=== PATIENT | male | born 1960 | race Caucasian/White ===

== ENCOUNTER 2017-11-22 11:03 | Inpatient (IN) | payer MEDICAID ==
--- NOTE | 2017-11-22 11:44 | RAD ---
PROCEDURE: CHEST RADIOGRAPH, 1 VIEW HISTORY: Shortness of breath COMPARISON: None available. FINDINGS: LUNGS: The lungs are clear. PLEURA: No pneumothorax or pleural fluid seen. CARDIOVASCULAR: Normal. OSSEOUS STRUCTURES: No significant abnormalities. VISUALIZED UPPER ABDOMEN: Normal. OTHER FINDINGS: None. IMPRESSION: No active pulmonary disease.
[2017-11-22 11:49] LABS: BASO % 0.6 % (0.0-2.0); EOS # 0.3 K/uL (0.0-0.7); EOS % 3.7 % (0.0-4.0); HEMOGLOBIN 14.3 g/dL (12.0-18.0); LYMPH # 1.5 K/uL (1.0-4.3); LYMPH % 21.9 % (20.0-40.0); MEAN CELL VOLUME 88.5 fL (80.0-94.0); MEAN CORPUSCULAR HGB CONC 33.9 g/dL (33.0-37.0); MEAN PLATELET VOLUME 7.8 fL (7.2-11.7); NEUT # 4.2 K/uL (1.8-7.0); NEUT % 59.8 % (50.0-75.0); RBC 4.76 Mil/uL (4.40-5.90); RED CELL DISTRIBUTION WIDTH 13.7 % (11.5-14.5)
[2017-11-22 13:26] LABS: ALB/GLOB RATIO 1.2 (1.0-2.1); ALBUMIN 4.2 g/dL (3.5-5.0); ALT/SGPT 47 U/L (21-72); AST/SGOT 112 U/L (17-59); BLOOD UREA NITROGEN 13 mg/dL (9-20); CALCIUM 9.3 mg/dl (8.6-10.4); GFR AFRICAN-AMERICAN > 60; GFR NON-AFRICAN AMERICAN > 60
[2017-11-22 13:44] LABS: B-TYPE NATRIURETIC PEPTIDE 1190 pg/mL (0-900)
--- NOTE | 2017-11-22 14:10 | C.PDOC ---
History Of Present Illness 57-year-old male, presents to the emergency department with complaints of chest pain x3 days, that is described as discomfort associated with shortness of breath. Patient referred to ED for evaluation. Denies nausea/vomiting/diarrhea, chest pain or shortness of breath. Time Seen by Provider: 11/22/17 11:27 Chief Complaint (Nursing): Shortness Of Breath History Per: Patient History/Exam Limitations: no limitations Onset/Duration Of Symptoms: Days Current Symptoms Are (Timing): Still Present Past Medical History Reviewed: Historical Data, Nursing Documentation, Vital Signs Vital Signs: Last Vital Signs Temp 99.3 F 11/23/17 07:37 Pulse 68 11/23/17 08:27 Resp 17 11/23/17 08:27 BP 104/65 11/23/17 08:27 Pulse Ox 96 11/23/17 09:31 - Medical History PMH: Hypercholesterolemia Family History: States: No Known Family Hx - Social History Hx Alcohol Use: No Hx Substance Use: No Review Of Systems Constitutional: Negative for: Fever, Chills Cardiovascular: Positive for: Chest Pain Respiratory: Positive for: Shortness of Breath Gastrointestinal: Negative for: Vomiting Musculoskeletal: Negative for: Neck Pain, Back Pain Skin: Negative for: Rash Neurological: Negative for: Weakness, Numbness, Headache, Dizziness Physical Exam - Physical Exam Appears: Non-toxic, No Acute Distress Skin: Normal Color, Warm, Dry, No Rash Head: Atraumatic, Normacephalic Eye(s): bilateral: PERRL Nose: Normal Oral Mucosa: Moist Lips: Normal Appearing Neck: Normal ROM Chest: Symmetrical Cardiovascular: Rhythm Regular Respiratory: Normal Breath Sounds Gastrointestinal/Abdominal: Normal Exam, Bowel Sounds, Soft Extremity: Normal ROM, No Deformity, No Swelling Neurological/Psych: Oriented x3, Normal Speech ED Course And Treatment - Laboratory Results Result Diagrams: 11/23/17 05:50 11/23/17 05:57 ECG Rhythm: Sinus Rhythm Interpretation Of ECbpm. Normal intervals. Normal axis. ST depressions in 4 , 5, 6. T wave inversions and occsional PVCs in III and AVF. O2 Sat by Pulse Oximetry: 96 (RA) Pulse Ox Interpretation: Normal Critical Care Time - Critical Care Note Total Time (in mins): 45 Documented critical care: time excludes all time spent performing seperately billable procedures. Medical Decision Making Medical Decision Making: Patient will be admitted for NSTEMI Disposition Discussed With Dr.: Aron Cartwright Counseled Patient/Family Regarding: Studies Performed, Diagnosis - Disposition Disposition: HOSPITALIZED Disposition Time: 14:10 Condition: FAIR - Clinical Impression Clinical Impression: NSTEMI (non-ST elevated myocardial infarction) - Scribe Statement The provider has reviewed the documentation as recorded by the Scribe (Faina Louis) All medical record entries made by the Scribe were at my direction and personally dictated by me. I have reviewed the chart and agree that the record accurately reflects my personal performance of the history, physical exam, medical decision making, and the department course for this patient. I have also personally directed, reviewed, and agree with the discharge instructions and disposition.
[2017-11-22] MEDS ORDERED: Morphine 4 MG/ML VIAL IV ONE (14:55)
[2017-11-22] MEDS ORDERED: Nitroglycerin 2% Ointment Foilpak UD TOP ONE (14:56)
[2017-11-22] MEDS ORDERED: Heparin25000 units/250ml 1/2NS 25,000 UNITS/250 ML BAG IV PRN (15:00)
--- NOTE | 2017-11-22 15:16 | CP.PCM.HP ---
<Eze Nevarez - Last Filed: 11/22/17 16:39> History of Present Illness - History of Present Illness History of Present Illness: PGY-1 H&P for Dr. Cartwright CC: chest pain This is a 57 year old male with no significant PMHx who comes in referred by Dr. Hernandez for chest pain. Patient has been experiencing chest pain for the past 3 days. It is left sided and non-radiating. Patient is unable to describe the quality of the pain but states that it is currently 3/10. Pain is constant. Patient states that when it first started, it woke him up from sleep. He drank water and tried to walk in the hopes of improvement. He went to Dr. Fredo Hernandez who referred him to the ED. Patient states that he is also experiencing intermittent shortness of breath with exertion. Both the chest pain and dyspnea are unrelated to positional changes. PMHx: Denies PSHx: Denies Allergies: NKDA Social: Smokes 3 cigarettes daily for many years, unable to remember how many years. Denies alcohol, drug use. Lives alone and works in a [employer]. Family Hx: Father passed at age 83 due to cardiac issues. PMD: Dr. Fredo Hernandez Home meds: Denies Present on Admission - Present on Admission Any Indicators Present on Admission: No Review of Systems - Constitutional Constitutional: absent: Chills, Fever - EENT Eyes: absent: Change in Vision Ears: absent: Decreased Hearing Nose/Mouth/Throat: absent: Nasal Congestion - Cardiovascular Cardiovascular: Chest Pain - Respiratory Respiratory: Cough, Dyspnea on Exertion. absent: Wheezing - Gastrointestinal Gastrointestinal: absent: Abdominal Pain, Nausea, Vomiting - Genitourinary Genitourinary: absent: Dysuria - Musculoskeletal Musculoskeletal: absent: Back Pain - Integumentary Integumentary: absent: Rash - Neurological Neurological: absent: Weakness - Psychiatric Psychiatric: absent: Anxiety - Endocrine Endocrine: absent: Palpitations Past Patient History - Past Social History Smoking Status: Current Some Days Smoker - CARDIAC Hx Hypercholesterolemia: Yes - PSYCHIATRIC Hx Substance Use: No - SURGICAL HISTORY Hx Surgeries: No Meds Allergies/Adverse Reactions: Allergies Allergy/AdvReac Type Severity Reaction Status Date / Time No Known Allergies Allergy Verified 11/22/17 11:22 Physical Exam - Constitutional Appears: No Acute Distress - Head Exam Head Exam: ATRAUMATIC, NORMOCEPHALIC - Eye Exam Eye Exam: EOMI, PERRL - ENT Exam ENT Exam: Mucous Membranes Moist - Respiratory Exam Respiratory Exam: Clear to Auscultation Bilateral, NORMAL BREATHING PATTERN. absent: Rales, Rhonchi, Wheezes - Cardiovascular Exam Cardiovascular Exam: REGULAR RHYTHM, +S1, +S2. absent: JVD - GI/Abdominal Exam GI & Abdominal Exam: Normal Bowel Sounds, Soft. absent: Distended, Tenderness - Extremities Exam Extremities exam: Positive for: pedal pulses present. Negative for: pedal edema - Neurological Exam Neurological exam: Alert, CN II-XII Intact, Oriented x3 - Psychiatric Exam Psychiatric exam: Normal Affect, Normal Mood - Skin Skin Exam: Dry, Warm Results - Vital Signs Recent Vital Signs: Last Vital Signs Temp 98.7 F 11/22/17 11:18 Pulse 78 11/22/17 13:52 Resp 18 11/22/17 13:52 BP 111/77 11/22/17 13:52 Pulse Ox 96 11/22/17 15:03 - Labs Result Diagrams: 11/22/17 11:44 11/22/17 11:44 Labs: Laboratory Results - last 24 hr 11/22/17 11/22/17 11:44 11:44 WBC 7.0 RBC 4.76 Hgb 14.3 Hct 42.1 MCV 88.5 MCH 30.0 MCHC 33.9 RDW 13.7 Plt Count 218 MPV 7.8 Neut % (Auto) 59.8 Lymph % (Auto) 21.9 [place] % (Auto) 14.0 H Eos % (Auto) 3.7 Baso % (Auto) 0.6 Neut # (Auto) 4.2 Lymph # (Auto) 1.5 [place] # (Auto) 1.0 H Eos # (Auto) 0.3 Baso # (Auto) 0.0 Sodium 141 Potassium 4.3 Chloride 103 Carbon Dioxide 20 L Anion Gap 22 H BUN 13 Creatinine 0.9 Est GFR ( Amer) > 60 Est GFR (Non-Af Amer) > 60 Random Glucose 102 Calcium 9.3 Total Bilirubin 0.6 AST 112 H ALT 47 Alkaline Phosphatase 97 Troponin I 4.0400 H* NT-Pro-B Natriuret Pep 1190 H Total Protein 7.8 Albumin 4.2 Globulin 3.6 Albumin/Globulin Ratio 1.2 Assessment & Plan - Assessment and Plan (Free Text) Plan: NSTEMI ST segment depressions seen on lateral leads First Troponin 4.44, repeat 4.60 Cardiology consult, Dr. Jamil, help appreciated BNP elevated Full dose aspirin given in ED STAT Plavix 300 mg and Crestor 40 mg given when he came up to the floors 2 mg of IV Morphine and topical nitroglycerin given for pain on the floors but switched to sublingual per cardiology recommendation GOAL HEART RATE in the 50s for now. Therapeutic Lovenox 75 mg SC Q12H Cardiac Cath tomorrow morning Work up ordered includes UDS, Lipid panel, hemoglobin A1C, Thyroid panel, Echocardiogram Current medications: * Lopressor 25 mg PO Q6H * ASA 325 daily * Plavix 75 daily Disposition: Patient will be transferred to the ICU for further monitoring. Discussed with Dr. Gabbie Nevarez PGY-1 <Aron Cartwright - Last Filed: 11/22/17 18:38> Results - Vital Signs Recent Vital Signs: Last Vital Signs Temp 98.7 F 11/22/17 15:05 Pulse 57 L 11/22/17 16:25 Resp 20 11/22/17 16:25 BP 103/66 11/22/17 16:25 Pulse Ox 96 11/22/17 15:15 - Labs Result Diagrams: 11/22/17 11:44 11/22/17 11:44 Labs: Laboratory Results - last 24 hr 11/22/17 11/22/17 11/22/17 11:44 11:44 15:26 WBC 7.0 RBC 4.76 Hgb 14.3 Hct 42.1 MCV 88.5 MCH 30.0 MCHC 33.9 RDW 13.7 Plt Count 218 MPV 7.8 Neut % (Auto) 59.8 Lymph % (Auto) 21.9 [place] % (Auto) 14.0 H Eos % (Auto) 3.7 Baso % (Auto) 0.6 Neut # (Auto) 4.2 Lymph # (Auto) 1.5 [place] # (Auto) 1.0 H Eos # (Auto) 0.3 Baso # (Auto) 0.0 PT 11.3 INR 1.0 APTT 25 Sodium 141 Potassium 4.3 Chloride 103 Carbon Dioxide 20 L Anion Gap 22 H BUN 13 Creatinine 0.9 Est GFR ( Amer) > 60 Est GFR (Non-Af Amer) > 60 Random Glucose 102 Calcium 9.3 Total Bilirubin 0.6 AST 112 H ALT 47 Alkaline Phosphatase 97 Total Creatine Kinase CK-MB (Mass) Troponin I 4.0400 H* NT-Pro-B Natriuret Pep 1190 H Total Protein 7.8 Albumin 4.2 Globulin 3.6 Albumin/Globulin Ratio 1.2 11/22/17 15:26 WBC RBC Hgb Hct MCV MCH MCHC RDW Plt Count MPV Neut % (Auto) Lymph % (Auto) [place] % (Auto) Eos % (Auto) Baso % (Auto) Neut # (Auto) Lymph # (Auto) [place] # (Auto) Eos # (Auto) Baso # (Auto) PT INR APTT Sodium Potassium Chloride Carbon Dioxide Anion Gap BUN Creatinine Est GFR ( Amer) Est GFR (Non-Af Amer) Random Glucose Calcium Total Bilirubin AST ALT Alkaline Phosphatase Total Creatine Kinase 481 H CK-MB (Mass) 11.7 H Troponin I 4.6800 H* NT-Pro-B Natriuret Pep Total Protein Albumin Globulin Albumin/Globulin Ratio Attending/Attestation - Attestation I have personally seen and examined this patient.: Yes I have fully participated in the care of the patient.: Yes I have reviewed all pertinent clinical information: Yes Notes (Text): 11/22/17 18:28 Medical attending: Patient was seen and examined by me. Agree with the above note by the resident The patient was moved to the despite me asking the ER to keep the patient in the ER until I could come and evaluate the patient. The patient was actively having chest pain when I saw him. He reported he was having chest pain at his PMD's office and when he came to the ER. He was not given nitro SL or topical yet, nor morphine so we tried this. We also started heparin ggt, however cardiology called us back very shortly and changed to lovenox SC BID We ordered Plavix, ASA, statin, betablocker. As mentioned above he already had positive troponins, and also the concerning EKG findings we moved the patient to the ICU. An immediate repeat troponin shows that it is still climbing. Cardiology is planning on cardiac catherization. Echo has been ordered. thank you Aron Cartwright
[2017-11-22] MEDS ORDERED: Metoprolol 1 mg/ml Inj IVP ONE ×2 (15:43)
[2017-11-22] MEDS ORDERED: Enoxaparin 60 mg Syringe SC SCH (15:44)
[2017-11-22 15:48] LABS: PROTHROMBIN TIME 11.3 SECONDS (9.7-12.2)
[2017-11-22 16:20] LABS: TROPONIN I 4.68 ng/mL (0.00-0.120)
[2017-11-22 16:21] LABS: CK-MB 11.7 ng/mL (0.0-3.38)
--- NOTE | 2017-11-22 16:21 | CP.PCM.CON ---
<Kenia Barnard - Last Filed: 11/22/17 16:41> History of Present Illness - History of Present Illness History of Present Illness: ICU Consult Note : Patient is a 57 year old male with no significant PMHx who comes in referred by Dr. Hernandez for chest pain. Patient has been experiencing chest pain for the past 3-4 days. It is left sided and non-radiating. Patient is unable to describe the quality of the pain but states that it is currently 3/10. Pain is constant. Patient states that when it first started, it woke him up from sleep. He drank water and tried to walk in the hopes of improvement. He went to Dr. Fredo Hernandez who referred him to the ED. Patient states that he is also experiencing intermittent shortness of breath with exertion. Both the chest pain and dyspnea are unrelated to positional changes. Denies headaches, dizziness, palpitations, sob, urinary symptoms. ED Course: Aspirin 324mg PO x 1, Plavix 300mg PO x 1 PMD: Dr. Fredo Hernandez Past Medical Hx: Denies Past Surgical Hx: Denies Allergies: NKDA Social: Smokes 3 cigarettes daily for many years, unable to remember how many years. Denies alcohol, drug use. Lives alone and works in a [employer]. Family Hx: Father passed at age 83 due to cardiac issues. Medications: Denies Past Patient History - Past Social History Smoking Status: Current Some Days Smoker - CARDIAC Hx Hypercholesterolemia: Yes - PSYCHIATRIC Hx Substance Use: No - SURGICAL HISTORY Hx Surgeries: No Meds Allergies/Adverse Reactions: Allergies Allergy/AdvReac Type Severity Reaction Status Date / Time No Known Allergies Allergy Verified 11/22/17 11:22 - Medications Medications: Current Medications Aspirin (Aspirin) 325 mg PO DAILY [facility] Clopidogrel Bisulfate (Plavix) 75 mg PO DAILY [facility] Enoxaparin Sodium (Lovenox) 75 mg SC Q12H [facility] Metoprolol Tartrate (Lopressor) 25 mg PO Q6 [facility] Last Admin: 11/22/17 16:17 Dose: 25 mg Nitroglycerin (Nitrostat Sl Tab) 0.4 mg SL Q5M PRN PRN Reason: chest pain Physical Exam - Additional Findings Additional findings: - Constitutional Appears: No Acute Distress - Head Exam Head Exam: ATRAUMATIC, NORMOCEPHALIC - Eye Exam Eye Exam: EOMI, PERRL - ENT Exam ENT Exam: Mucous Membranes Moist - Respiratory Exam Respiratory Exam: Clear to Auscultation Bilateral, NORMAL BREATHING PATTERN. absent: Rales, Rhonchi, Wheezes - Cardiovascular Exam Cardiovascular Exam: REGULAR RHYTHM, +S1, +S2. absent: JVD - GI/Abdominal Exam GI & Abdominal Exam: Normal Bowel Sounds, Soft. absent: Distended, Tenderness - Extremities Exam Extremities exam: Positive for: pedal pulses present. Negative for: pedal edema - Neurological Exam Neurological exam: Alert, CN II-XII Intact, Oriented x3 - Psychiatric Exam Psychiatric exam: Normal Affect, Normal Mood - Skin Skin Exam: Dry, Warm Results - Vital Signs Recent Vital Signs: Last Vital Signs Temp 98.7 F 11/22/17 15:05 Pulse 66 11/22/17 15:05 Resp 20 11/22/17 15:05 BP 101/57 L 11/22/17 16:17 Pulse Ox 96 11/22/17 15:15 - Labs Result Diagrams: 11/22/17 11:44 11/22/17 11:44 Labs: Laboratory Results - last 24 hr 11/22/17 11/22/17 11/22/17 11:44 11:44 15:26 WBC 7.0 RBC 4.76 Hgb 14.3 Hct 42.1 MCV 88.5 MCH 30.0 MCHC 33.9 RDW 13.7 Plt Count 218 MPV 7.8 Neut % (Auto) 59.8 Lymph % (Auto) 21.9 [place] % (Auto) 14.0 H Eos % (Auto) 3.7 Baso % (Auto) 0.6 Neut # (Auto) 4.2 Lymph # (Auto) 1.5 [place] # (Auto) 1.0 H Eos # (Auto) 0.3 Baso # (Auto) 0.0 PT 11.3 INR 1.0 APTT 25 Sodium 141 Potassium 4.3 Chloride 103 Carbon Dioxide 20 L Anion Gap 22 H BUN 13 Creatinine 0.9 Est GFR ( Amer) > 60 Est GFR (Non-Af Amer) > 60 Random Glucose 102 Calcium 9.3 Total Bilirubin 0.6 AST 112 H ALT 47 Alkaline Phosphatase 97 Total Creatine Kinase Troponin I 4.0400 H* NT-Pro-B Natriuret Pep 1190 H Total Protein 7.8 Albumin 4.2 Globulin 3.6 Albumin/Globulin Ratio 1.2 11/22/17 15:26 WBC RBC Hgb Hct MCV MCH MCHC RDW Plt Count MPV Neut % (Auto) Lymph % (Auto) [place] % (Auto) Eos % (Auto) Baso % (Auto) Neut # (Auto) Lymph # (Auto) [place] # (Auto) Eos # (Auto) Baso # (Auto) PT INR APTT Sodium Potassium Chloride Carbon Dioxide Anion Gap BUN Creatinine Est GFR ( Amer) Est GFR (Non-Af Amer) Random Glucose Calcium Total Bilirubin AST ALT Alkaline Phosphatase Total Creatine Kinase 481 H Troponin I NT-Pro-B Natriuret Pep Total Protein Albumin Globulin Albumin/Globulin Ratio Assessment & Plan - Assessment and Plan (Free Text) Assessment: Patient is a 57 year old male with no significant past medical history presented to the ED with chest pain x 3-4 days. Now with NSTEMI. Will admit to ICU for closer monitoring. Neurology: -Patient is AAOx3 -Will transfer to ICU at this time for closer monitoring Cardiology: -Patient denies previous cardiac issues -Patient with NSTEMI, currently chest pain improved -Troponin trending up 4.040 -> 4.680, f/u troponins -BNP 1190 -Lovenox 75mg Q12H -Continue Aspirin 325mg PO daily, Plavix 75mg PO daily -Continue Metoprolol 25mg PO Q6H, Nitroglycein 0.4mg SL prn -Per cardio, goal to keep HR < 60 -Patient for cardiac cath tomorrow -NPO after midnight -F/U echocardiogram, TSH, Free T4, Lipid panel, UDS -Cardiology on consult, Dr Jamil, help appreciated Respiratory: -No acute events at this time -CXR 11/22: no active disease GI : -No acute events at this time Renal: -No acute events at this time GI/DVT ppx: -Pepcid 20mg PO BID -Lovenox 75mg Q12H (hold tomorrow am dose) <Guille Neves - Last Filed: 11/22/17 16:50> Meds - Medications Medications: Current Medications Aspirin (Aspirin) 325 mg PO DAILY [facility] Clopidogrel Bisulfate (Plavix) 75 mg PO DAILY [facility] Enoxaparin Sodium (Lovenox) 75 mg SC Q12H [facility] Last Admin: 11/22/17 16:25 Dose: 75 mg Metoprolol Tartrate (Lopressor) 25 mg PO Q6 [facility] Last Admin: 11/22/17 16:17 Dose: 25 mg Nitroglycerin (Nitrostat Sl Tab) 0.4 mg SL Q5M PRN PRN Reason: chest pain Results - Vital Signs Recent Vital Signs: Last Vital Signs Temp 98.7 F 11/22/17 15:05 Pulse 66 11/22/17 15:05 Resp 20 11/22/17 15:05 BP 101/57 L 11/22/17 16:17 Pulse Ox 96 11/22/17 15:15 - Labs Result Diagrams: 11/22/17 11:44 11/22/17 11:44 Labs: Laboratory Results - last 24 hr 11/22/17 11/22/17 11/22/17 11:44 11:44 15:26 WBC 7.0 RBC 4.76 Hgb 14.3 Hct 42.1 MCV 88.5 MCH 30.0 MCHC 33.9 RDW 13.7 Plt Count 218 MPV 7.8 Neut % (Auto) 59.8 Lymph % (Auto) 21.9 [place] % (Auto) 14.0 H Eos % (Auto) 3.7 Baso % (Auto) 0.6 Neut # (Auto) 4.2 Lymph # (Auto) 1.5 [place] # (Auto) 1.0 H Eos # (Auto) 0.3 Baso # (Auto) 0.0 PT 11.3 INR 1.0 APTT 25 Sodium 141 Potassium 4.3 Chloride 103 Carbon Dioxide 20 L Anion Gap 22 H BUN 13 Creatinine 0.9 Est GFR ( Amer) > 60 Est GFR (Non-Af Amer) > 60 Random Glucose 102 Calcium 9.3 Total Bilirubin 0.6 AST 112 H ALT 47 Alkaline Phosphatase 97 Total Creatine Kinase CK-MB (Mass) Troponin I 4.0400 H* NT-Pro-B Natriuret Pep 1190 H Total Protein 7.8 Albumin 4.2 Globulin 3.6 Albumin/Globulin Ratio 1.2 11/22/17 15:26 WBC RBC Hgb Hct MCV MCH MCHC RDW Plt Count MPV Neut % (Auto) Lymph % (Auto) [place] % (Auto) Eos % (Auto) Baso % (Auto) Neut # (Auto) Lymph # (Auto) [place] # (Auto) Eos # (Auto) Baso # (Auto) PT INR APTT Sodium Potassium Chloride Carbon Dioxide Anion Gap BUN Creatinine Est GFR ( Amer) Est GFR (Non-Af Amer) Random Glucose Calcium Total Bilirubin AST ALT Alkaline Phosphatase Total Creatine Kinase 481 H CK-MB (Mass) 11.7 H Troponin I 4.6800 H* NT-Pro-B Natriuret Pep Total Protein Albumin Globulin Albumin/Globulin Ratio Attending/Attestation - Attestation I have personally seen and examined this patient.: Yes I have fully participated in the care of the patient.: Yes I have reviewed all pertinent clinical information: Yes Notes (Text): 11/22/17 16:47 patient seen and examined 57-year-old male admitted with chest pain for the past 3-4 days with elevated troponin and ST depression Patient initially admitted to telemetry and being transferred to intensive care unit Started on Lovenox, beta blockers, Plavix, aspirin Cardiology evaluation Cardiac cath tomorrow as per cardiology
[2017-11-22] MEDS: Enoxaparin 80 mg Syringe SC SCH (16:25)
[2017-11-22 18:56] LABS: CK-MB 12.9 ng/mL (0.0-3.38)
[2017-11-22 20:31] LABS: BARBITURATES, UR NEGATIVE (NEGATIVE); BENZODIAZEPINES, UR NEGATIVE (NEGATIVE); PHENCYCLIDINE, UR NEGATIVE (NEGATIVE)
[2017-11-22 20:32] LABS: OPIATES, UR POSITIVE (NEGATIVE)
[2017-11-22 23:43] LABS: TROPONIN I 5.09 ng/mL (0.00-0.120)
[2017-11-22 23:44] LABS: CK-MB 10.8 ng/mL (0.0-3.38)
[2017-11-23 06:07] LABS: BASO % 0.6 % (0.0-2.0); EOS # 0.4 K/uL (0.0-0.7); EOS % 5.4 % (0.0-4.0); LYMPH # 1.8 K/uL (1.0-4.3); LYMPH % 27.1 % (20.0-40.0); MEAN CELL VOLUME 89.4 fL (80.0-94.0); MEAN CORPUSCULAR HEMOGLOBIN 30.1 pg (27.0-31.0); MEAN CORPUSCULAR HGB CONC 33.7 g/dL (33.0-37.0); MEAN PLATELET VOLUME 8.4 fL (7.2-11.7); MONO # 0.8 K/uL (0.0-0.8); MONO % 12.5 % (0.0-10.0); NEUT # 3.7 K/uL (1.8-7.0); NEUT % 54.4 % (50.0-75.0); RBC 4.66 Mil/uL (4.40-5.90); RED CELL DISTRIBUTION WIDTH 14.3 % (11.5-14.5); WHITE BLOOD COUNT 6.7 K/uL (4.8-10.8)
[2017-11-23 06:09] LABS: PROTHROMBIN TIME 11.5 SECONDS (9.7-12.2)
[2017-11-23 06:30] LABS: LDL CHOLESTEROL 149 mg/dL (0-129)
[2017-11-23 06:32] LABS: ALB/GLOB RATIO 1.1 (1.0-2.1); ALBUMIN 3.7 g/dL (3.5-5.0); ALT/SGPT 46 U/L (21-72); AST/SGOT 85 U/L (17-59); BLOOD UREA NITROGEN 14 mg/dL (9-20); CALCIUM 8.5 mg/dl (8.6-10.4); GFR AFRICAN-AMERICAN > 60; GFR NON-AFRICAN AMERICAN > 60; HDL CHOLESTEROL 41 mg/dL (30-70)
[2017-11-23] MEDS ORDERED: Acetylcysteine 20% Inhal Soln (4ml) PO SCH (09:00)
[2017-11-23] MEDS ORDERED: Sodium Chloride 0.9% 1,000 ML IV SCH (09:00)
--- NOTE | 2017-11-23 09:21 | CP.PCM.PN ---
Subjective - Date & Time of Evaluation Date of Evaluation: 11/23/17 Time of Evaluation: 09:00 - Subjective Subjective: Patient was seen and examined by me. Last night was moved into the ICU from telemetry since he was still having chest pain. Patient is for cardiac catherization at noon time. When I saw him he was not in any acute distress, reported that the pain was finally resolved. He remains on Plavix, Lovenox, ASA, BB, and statin. On tele-monitor his HR was in the mid 60s and NSR Objective - Vital Signs/Intake and Output Vital Signs (last 24 hours): Temp Pulse Resp BP Pulse Ox 99.3 F 68 17 104/65 96 11/23/17 07:37 11/23/17 08:27 11/23/17 08:27 11/23/17 08:27 11/23/17 08:00 Intake and Output: 11/23/17 11/23/17 06:59 18:59 Intake Total 390 0 Output Total 850 Balance -460 0 - Medications Medications: Current Medications Acetylcysteine (Acetylcysteine 20%) 4 ml PO Q12H [facility] Stop: 11/24/17 21:01 Last Admin: 11/23/17 09:09 Dose: Not Given Aspirin (Aspirin) 325 mg PO DAILY [facility] Last Admin: 11/23/17 09:09 Dose: Not Given Clopidogrel Bisulfate (Plavix) 75 mg PO DAILY [facility] Last Admin: 11/23/17 09:09 Dose: Not Given Enoxaparin Sodium (Lovenox) 75 mg SC Q12H [facility] Last Admin: 11/22/17 16:25 Dose: 75 mg Sodium Chloride (Sodium Chloride 0.9%) 1,000 mls @ 100 mls/hr IV .Q10H [facility] Metoprolol Tartrate (Lopressor) 25 mg PO Q6 [facility] Last Admin: 11/23/17 05:53 Dose: Not Given Nitroglycerin (Nitrostat Sl Tab) 0.4 mg SL Q5M PRN PRN Reason: chest pain Rosuvastatin Calcium (Crestor) 40 mg PO HS [facility] - Labs Labs: 11/23/17 05:50 11/23/17 05:57 PT 11.5 SECONDS (9.7-12.2) 11/23/17 05:50 INR 1.0 11/23/17 05:50 APTT 25 SECONDS (21-34) 11/22/17 15:26 - Constitutional Appears: No Acute Distress - Head Exam Head Exam: NORMAL INSPECTION, NORMOCEPHALIC - Eye Exam Eye Exam: EOMI, Normal appearance - ENT Exam ENT Exam: Mucous Membranes Moist - Respiratory Exam Respiratory Exam: Clear to Ausculation Bilateral, NORMAL BREATHING PATTERN - Cardiovascular Exam Cardiovascular Exam: REGULAR RHYTHM - Neurological Exam Neurological Exam: Alert, Awake, Oriented x3 Neuro motor strength exam: Left Upper Extremity: 5, Right Upper Extremity: 5, Left Lower Extremity: 5, Right Lower Extremity: 5 - Psychiatric Exam Psychiatric exam: Normal Affect, Normal Mood - Skin Skin Exam: Normal Color, Warm Assessment and Plan - Assessment and Plan (Free Text) Assessment: NSTEMI 11/23: Overnight the troponins continued to climb to 6.0 and this morning came to 5. Currently no longer havng chest pain. For cardiac catherization today. On Plavix, Lovenox, ASA, Statin, and BP medications. ST segment depressions seen on lateral leads First Troponin 4.44, repeat 4.60, then 6.0 Cardiology consult, Dr. Jamil STAT Plavix 300 mg and Crestor 40 mg given when he came up to the floors 2 mg of IV Morphine and topical nitroglycerin given for pain on the floors but switched to sublingual per cardiology recommendation Heavy Smoking 11/23: We again discussed the patient smoking history - at least 40 years. Still an active smoker.
--- NOTE | 2017-11-23 10:54 | CP.CCUPN ---
<Kenia Barnard - Last Filed: 11/23/17 11:08> CCU Subjective - Physician Review Subjective (Free Text): 11/23/17 10:53 Patient seen and examined at bedside. Per nursing no acute events overnight. Patient is NPO for cardiac cath this afternoon. Patient states that chest pain improved. Offers no complaints at this time. Denies headaches, dizziness, palpitations, sob, abdominal pain, urinary symptoms. CCU Objective - Vital Signs / Intake & Output Vital Signs (Last 4 hours): Vital Signs Temp Pulse Resp BP Pulse Ox 11/23/17 10:00 65 15 97 11/23/17 09:52 66 18 96/70 L 11/23/17 09:32 96 11/23/17 09:00 65 16 95 11/23/17 08:52 69 18 95/64 L 11/23/17 08:27 68 17 104/65 11/23/17 08:00 67 16 96 11/23/17 07:52 73 17 96/63 L 96 11/23/17 07:37 99.3 F 11/23/17 07:00 64 17 95 Intake and Output (Last 8hrs): Intake & Output 11/22/17 11/23/17 11/23/17 22:59 06:59 14:59 Intake Total 540 150 200 Output Total 450 400 Balance 90 -250 200 Weight 67.642 kg Intake: Intake, IV Amount 0 200 Left Antecubital 0 200 Oral 540 150 0 Output: Urine 450 400 Urine, Voided 450 400 Stool 0 Other: # Voids Urine, Voided 0 # Bowel Movements 0 0 - Physical Exam Head: Positive for: Atraumatic, Normocephalic Pupils: Positive for: PERRL Extroacular Muscles: Positive for: EOMI Conjunctiva: Positive for: Normal Mouth: Positive for: Moist Mucous Membranes Neck: Positive for: Normal Range of Motion Respiratory/Chest: Positive for: Clear to Auscultation. Negative for: Respiratory Distress, Accessory Muscle Use Cardiovascular: Positive for: Regular Rate and Rhythm, Normal S1, S2 Abdomen: Positive for: Normal Bowel Sounds. Negative for: Tenderness Upper Extremity: Positive for: Normal Inspection Lower Extremity: Positive for: Normal Inspection Skin: Positive for: Warm, Normal Color Psychiatric: Positive for: Alert, Oriented x 3, Normal Insight - Medications Active Medications: Active Medications Generic Name Dose Route Start Last Admin Trade Name Francisco PRN Reason Stop Dose Admin Acetylcysteine 4 ml 11/23/17 09:00 11/23/17 09:09 Acetylcysteine 20% PO 11/24/17 21:01 Not Given Q12H GINO Aspirin 325 mg 11/23/17 10:00 11/23/17 09:09 Aspirin PO Not Given DAILY [facility] Clopidogrel Bisulfate 75 mg 11/23/17 10:00 11/23/17 09:09 Plavix PO Not Given DAILY [facility] Enoxaparin Sodium 75 mg 11/22/17 16:00 11/22/17 16:25 Lovenox SC 75 mg Q12H GINO Administration Sodium Chloride 1,000 mls @ 100 mls/hr 11/23/17 09:00 11/23/17 09:00 Sodium Chloride 0.9% IV 100 mls/hr .Q10H GINO Administration Metoprolol Tartrate 25 mg 11/22/17 15:45 11/23/17 05:53 Lopressor PO Not Given Q6 GINO Nitroglycerin 0.4 mg 11/22/17 15:37 Nitrostat Sl Tab SL Q5M PRN chest pain Rosuvastatin Calcium 40 mg 11/23/17 22:00 Crestor PO HS [facility] - Patient Studies Lab Studies: Lab Studies 11/23/17 11/23/17 11/23/17 Range/Units 05:57 05:57 05:50 WBC (4.8-10.8) K/uL RBC (4.40-5.90) Mil/uL Hgb (12.0-18.0) g/dL Hct (35.0-51.0) % MCV (80.0-94.0) fL MCH (27.0-31.0) pg MCHC (33.0-37.0) g/dL RDW (11.5-14.5) % Plt Count (130-400) K/uL MPV (7.2-11.7) fL Neut % (Auto) (50.0-75.0) % Lymph % (Auto) (20.0-40.0) % [place] % (Auto) (0.0-10.0) % Eos % (Auto) (0.0-4.0) % Baso % (Auto) (0.0-2.0) % Neut # (Auto) (1.8-7.0) K/uL Lymph # (Auto) (1.0-4.3) K/uL [place] # (Auto) (0.0-0.8) K/uL Eos # (Auto) (0.0-0.7) K/uL Baso # (Auto) (0.0-0.2) K/uL PT 11.5 (9.7-12.2) SECONDS INR 1.0 APTT (21-34) SECONDS Sodium 140 (132-148) mmol/L Potassium 4.1 (3.6-5.2) mmol/L Chloride 104 (98-107) mmol/L Carbon Dioxide 24 (22-30) mmol/L Anion Gap 16 (10-20) BUN 14 (9-20) mg/dL Creatinine 0.9 (0.8-1.5) mg/dL Est GFR ( Amer) > 60 Est GFR (Non-Af Amer) > 60 Random Glucose 90 (75-110) mg/dL Hemoglobin A1c (4.2-6.5) % Calcium 8.5 L (8.6-10.4) mg/dl Magnesium 2.0 (1.6-2.3) mg/dL Total Bilirubin 0.4 (0.2-1.3) mg/dL AST 85 H D (17-59) U/L ALT 46 (21-72) U/L Alkaline Phosphatase 88 (38-126) U/L Total Creatine Kinase (55-170) U/L CK-MB (Mass) (0.0-3.38) ng/mL Troponin I (0.00-0.120) ng/mL NT-Pro-B Natriuret Pep (0-900) pg/mL Total Protein 7.0 (6.3-8.3) g/dL Albumin 3.7 (3.5-5.0) g/dL Globulin 3.3 (2.2-3.9) gm/dL Albumin/Globulin Ratio 1.1 (1.0-2.1) Triglycerides 94 (0-149) mg/dL Cholesterol 217 H (0-199) mg/dL LDL Cholesterol Direct 149 H (0-129) mg/dL HDL Cholesterol 41 (30-70) mg/dL Free T4 0.83 (0.78-2.19) ng/dL TSH 3rd Generation 2.16 (0.46-4.68) mIU/L Urine Opiates Screen (NEGATIVE) Urine Methadone Screen (NEGATIVE) Ur Barbiturates Screen (NEGATIVE) Ur Phencyclidine Scrn (NEGATIVE) Ur Amphetamines Screen (NEGATIVE) U Benzodiazepines Scrn (NEGATIVE) U Oth Cocaine Metabols (NEGATIVE) U Cannabinoids Screen (NEGATIVE) 11/23/17 11/23/17 11/22/17 Range/Units 05:50 05:50 22:55 WBC 6.7 (4.8-10.8) K/uL RBC 4.66 (4.40-5.90) Mil/uL Hgb 14.0 (12.0-18.0) g/dL Hct 41.6 (35.0-51.0) % MCV 89.4 (80.0-94.0) fL MCH 30.1 (27.0-31.0) pg MCHC 33.7 (33.0-37.0) g/dL RDW 14.3 (11.5-14.5) % Plt Count 205 (130-400) K/uL MPV 8.4 (7.2-11.7) fL Neut % (Auto) 54.4 (50.0-75.0) % Lymph % (Auto) 27.1 (20.0-40.0) % [place] % (Auto) 12.5 H (0.0-10.0) % Eos % (Auto) 5.4 H (0.0-4.0) % Baso % (Auto) 0.6 (0.0-2.0) % Neut # (Auto) 3.7 (1.8-7.0) K/uL Lymph # (Auto) 1.8 (1.0-4.3) K/uL [place] # (Auto) 0.8 (0.0-0.8) K/uL Eos # (Auto) 0.4 (0.0-0.7) K/uL Baso # (Auto) 0.0 (0.0-0.2) K/uL PT (9.7-12.2) SECONDS INR APTT (21-34) SECONDS Sodium (132-148) mmol/L Potassium (3.6-5.2) mmol/L Chloride (98-107) mmol/L Carbon Dioxide (22-30) mmol/L Anion Gap (10-20) BUN (9-20) mg/dL Creatinine (0.8-1.5) mg/dL Est GFR ( Amer) Est GFR (Non-Af Amer) Random Glucose (75-110) mg/dL Hemoglobin A1c 5.8 (4.2-6.5) % Calcium (8.6-10.4) mg/dl Magnesium (1.6-2.3) mg/dL Total Bilirubin (0.2-1.3) mg/dL AST (17-59) U/L ALT (21-72) U/L Alkaline Phosphatase (38-126) U/L Total Creatine Kinase 417 H (55-170) U/L CK-MB (Mass) 10.8 H (0.0-3.38) ng/mL Troponin I 5.0900 H* (0.00-0.120) ng/mL NT-Pro-B Natriuret Pep (0-900) pg/mL Total Protein (6.3-8.3) g/dL Albumin (3.5-5.0) g/dL Globulin (2.2-3.9) gm/dL Albumin/Globulin Ratio (1.0-2.1) Triglycerides (0-149) mg/dL Cholesterol (0-199) mg/dL LDL Cholesterol Direct (0-129) mg/dL HDL Cholesterol (30-70) mg/dL Free T4 (0.78-2.19) ng/dL TSH 3rd Generation (0.46-4.68) mIU/L Urine Opiates Screen (NEGATIVE) Urine Methadone Screen (NEGATIVE) Ur Barbiturates Screen (NEGATIVE) Ur Phencyclidine Scrn (NEGATIVE) Ur Amphetamines Screen (NEGATIVE) U Benzodiazepines Scrn (NEGATIVE) U Oth Cocaine Metabols (NEGATIVE) U Cannabinoids Screen (NEGATIVE) 11/22/17 11/22/17 11/22/17 Range/Units 20:06 18:22 15:26 WBC (4.8-10.8) K/uL RBC (4.40-5.90) Mil/uL Hgb (12.0-18.0) g/dL Hct (35.0-51.0) % MCV (80.0-94.0) fL MCH (27.0-31.0) pg MCHC (33.0-37.0) g/dL RDW (11.5-14.5) % Plt Count (130-400) K/uL MPV (7.2-11.7) fL Neut % (Auto) (50.0-75.0) % Lymph % (Auto) (20.0-40.0) % [place] % (Auto) (0.0-10.0) % Eos % (Auto) (0.0-4.0) % Baso % (Auto) (0.0-2.0) % Neut # (Auto) (1.8-7.0) K/uL Lymph # (Auto) (1.0-4.3) K/uL [place] # (Auto) (0.0-0.8) K/uL Eos # (Auto) (0.0-0.7) K/uL Baso # (Auto) (0.0-0.2) K/uL PT (9.7-12.2) SECONDS INR APTT (21-34) SECONDS Sodium (132-148) mmol/L Potassium (3.6-5.2) mmol/L Chloride (98-107) mmol/L Carbon Dioxide (22-30) mmol/L Anion Gap (10-20) BUN (9-20) mg/dL Creatinine (0.8-1.5) mg/dL Est GFR ( Amer) Est GFR (Non-Af Amer) Random Glucose (75-110) mg/dL Hemoglobin A1c (4.2-6.5) % Calcium (8.6-10.4) mg/dl Magnesium (1.6-2.3) mg/dL Total Bilirubin (0.2-1.3) mg/dL AST (17-59) U/L ALT (21-72) U/L Alkaline Phosphatase (38-126) U/L Total Creatine Kinase 495 H 481 H (55-170) U/L CK-MB (Mass) 12.9 H 11.7 H (0.0-3.38) ng/mL Troponin I 6.0000 H* 4.6800 H* (0.00-0.120) ng/mL NT-Pro-B Natriuret Pep (0-900) pg/mL Total Protein (6.3-8.3) g/dL Albumin (3.5-5.0) g/dL Globulin (2.2-3.9) gm/dL Albumin/Globulin Ratio (1.0-2.1) Triglycerides (0-149) mg/dL Cholesterol (0-199) mg/dL LDL Cholesterol Direct (0-129) mg/dL HDL Cholesterol (30-70) mg/dL Free T4 (0.78-2.19) ng/dL TSH 3rd Generation (0.46-4.68) mIU/L Urine Opiates Screen Positive H (NEGATIVE) Urine Methadone Screen Negative (NEGATIVE) Ur Barbiturates Screen Negative (NEGATIVE) Ur Phencyclidine Scrn Negative (NEGATIVE) Ur Amphetamines Screen Negative (NEGATIVE) U Benzodiazepines Scrn Negative (NEGATIVE) U Oth Cocaine Metabols Negative (NEGATIVE) U Cannabinoids Screen Negative (NEGATIVE) 11/22/17 11/22/17 11/22/17 Range/Units 15:26 11:44 11:44 WBC 7.0 (4.8-10.8) K/uL RBC 4.76 (4.40-5.90) Mil/uL Hgb 14.3 (12.0-18.0) g/dL Hct 42.1 (35.0-51.0) % MCV 88.5 (80.0-94.0) fL MCH 30.0 (27.0-31.0) pg MCHC 33.9 (33.0-37.0) g/dL RDW 13.7 (11.5-14.5) % Plt Count 218 (130-400) K/uL MPV 7.8 (7.2-11.7) fL Neut % (Auto) 59.8 (50.0-75.0) % Lymph % (Auto) 21.9 (20.0-40.0) % [place] % (Auto) 14.0 H (0.0-10.0) % Eos % (Auto) 3.7 (0.0-4.0) % Baso % (Auto) 0.6 (0.0-2.0) % Neut # (Auto) 4.2 (1.8-7.0) K/uL Lymph # (Auto) 1.5 (1.0-4.3) K/uL [place] # (Auto) 1.0 H (0.0-0.8) K/uL Eos # (Auto) 0.3 (0.0-0.7) K/uL Baso # (Auto) 0.0 (0.0-0.2) K/uL PT 11.3 (9.7-12.2) SECONDS INR 1.0 APTT 25 (21-34) SECONDS Sodium 141 (132-148) mmol/L Potassium 4.3 (3.6-5.2) mmol/L Chloride 103 (98-107) mmol/L Carbon Dioxide 20 L (22-30) mmol/L Anion Gap 22 H (10-20) BUN 13 (9-20) mg/dL Creatinine 0.9 (0.8-1.5) mg/dL Est GFR ( Amer) > 60 Est GFR (Non-Af Amer) > 60 Random Glucose 102 (75-110) mg/dL Hemoglobin A1c (4.2-6.5) % Calcium 9.3 (8.6-10.4) mg/dl Magnesium (1.6-2.3) mg/dL Total Bilirubin 0.6 (0.2-1.3) mg/dL AST 112 H (17-59) U/L ALT 47 (21-72) U/L Alkaline Phosphatase 97 (38-126) U/L Total Creatine Kinase (55-170) U/L CK-MB (Mass) (0.0-3.38) ng/mL Troponin I 4.0400 H* (0.00-0.120) ng/mL NT-Pro-B Natriuret Pep 1190 H (0-900) pg/mL Total Protein 7.8 (6.3-8.3) g/dL Albumin 4.2 (3.5-5.0) g/dL Globulin 3.6 (2.2-3.9) gm/dL Albumin/Globulin Ratio 1.2 (1.0-2.1) Triglycerides (0-149) mg/dL Cholesterol (0-199) mg/dL LDL Cholesterol Direct (0-129) mg/dL HDL Cholesterol (30-70) mg/dL Free T4 (0.78-2.19) ng/dL TSH 3rd Generation (0.46-4.68) mIU/L Urine Opiates Screen (NEGATIVE) Urine Methadone Screen (NEGATIVE) Ur Barbiturates Screen (NEGATIVE) Ur Phencyclidine Scrn (NEGATIVE) Ur Amphetamines Screen (NEGATIVE) U Benzodiazepines Scrn (NEGATIVE) U Oth Cocaine Metabols (NEGATIVE) U Cannabinoids Screen (NEGATIVE) Laboratory Results - last 24 hr 11/22/17 11/22/17 11/22/17 11:44 11:44 15:26 WBC 7.0 RBC 4.76 Hgb 14.3 Hct 42.1 MCV 88.5 MCH 30.0 MCHC 33.9 RDW 13.7 Plt Count 218 MPV 7.8 Neut % (Auto) 59.8 Lymph % (Auto) 21.9 [place] % (Auto) 14.0 H Eos % (Auto) 3.7 Baso % (Auto) 0.6 Neut # (Auto) 4.2 Lymph # (Auto) 1.5 [place] # (Auto) 1.0 H Eos # (Auto) 0.3 Baso # (Auto) 0.0 PT 11.3 INR 1.0 APTT 25 Sodium 141 Potassium 4.3 Chloride 103 Carbon Dioxide 20 L Anion Gap 22 H BUN 13 Creatinine 0.9 Est GFR ( Amer) > 60 Est GFR (Non-Af Amer) > 60 Random Glucose 102 Hemoglobin A1c Calcium 9.3 Magnesium Total Bilirubin 0.6 AST 112 H ALT 47 Alkaline Phosphatase 97 Total Creatine Kinase CK-MB (Mass) Troponin I 4.0400 H* NT-Pro-B Natriuret Pep 1190 H Total Protein 7.8 Albumin 4.2 Globulin 3.6 Albumin/Globulin Ratio 1.2 Triglycerides Cholesterol LDL Cholesterol Direct HDL Cholesterol Free T4 TSH 3rd Generation Urine Opiates Screen Urine Methadone Screen Ur Barbiturates Screen Ur Phencyclidine Scrn Ur Amphetamines Screen U Benzodiazepines Scrn U Oth Cocaine Metabols U Cannabinoids Screen 11/22/17 11/22/17 11/22/17 15:26 18:22 20:06 WBC RBC Hgb Hct MCV MCH MCHC RDW Plt Count MPV Neut % (Auto) Lymph % (Auto) [place] % (Auto) Eos % (Auto) Baso % (Auto) Neut # (Auto) Lymph # (Auto) [place] # (Auto) Eos # (Auto) Baso # (Auto) PT INR APTT Sodium Potassium Chloride Carbon Dioxide Anion Gap BUN Creatinine Est GFR ( Amer) Est GFR (Non-Af Amer) Random Glucose Hemoglobin A1c Calcium Magnesium Total Bilirubin AST ALT Alkaline Phosphatase Total Creatine Kinase 481 H 495 H CK-MB (Mass) 11.7 H 12.9 H Troponin I 4.6800 H* 6.0000 H* NT-Pro-B Natriuret Pep Total Protein Albumin Globulin Albumin/Globulin Ratio Triglycerides Cholesterol LDL Cholesterol Direct HDL Cholesterol Free T4 TSH 3rd Generation Urine Opiates Screen Positive H Urine Methadone Screen Negative Ur Barbiturates Screen Negative Ur Phencyclidine Scrn Negative Ur Amphetamines Screen Negative U Benzodiazepines Scrn Negative U Oth Cocaine Metabols Negative U Cannabinoids Screen Negative 11/22/17 11/23/17 11/23/17 22:55 05:50 05:50 WBC 6.7 RBC 4.66 Hgb 14.0 Hct 41.6 MCV 89.4 MCH 30.1 MCHC 33.7 RDW 14.3 Plt Count 205 MPV 8.4 Neut % (Auto) 54.4 Lymph % (Auto) 27.1 [place] % (Auto) 12.5 H Eos % (Auto) 5.4 H Baso % (Auto) 0.6 Neut # (Auto) 3.7 Lymph # (Auto) 1.8 [place] # (Auto) 0.8 Eos # (Auto) 0.4 Baso # (Auto) 0.0 PT INR APTT Sodium Potassium Chloride Carbon Dioxide Anion Gap BUN Creatinine Est GFR ( Amer) Est GFR (Non-Af Amer) Random Glucose Hemoglobin A1c 5.8 Calcium Magnesium Total Bilirubin AST ALT Alkaline Phosphatase Total Creatine Kinase 417 H CK-MB (Mass) 10.8 H Troponin I 5.0900 H* NT-Pro-B Natriuret Pep Total Protein Albumin Globulin Albumin/Globulin Ratio Triglycerides Cholesterol LDL Cholesterol Direct HDL Cholesterol Free T4 TSH 3rd Generation Urine Opiates Screen Urine Methadone Screen Ur Barbiturates Screen Ur Phencyclidine Scrn Ur Amphetamines Screen U Benzodiazepines Scrn U Oth Cocaine Metabols U Cannabinoids Screen 11/23/17 11/23/17 11/23/17 05:50 05:57 05:57 WBC RBC Hgb Hct MCV MCH MCHC RDW Plt Count MPV Neut % (Auto) Lymph % (Auto) [place] % (Auto) Eos % (Auto) Baso % (Auto) Neut # (Auto) Lymph # (Auto) [place] # (Auto) Eos # (Auto) Baso # (Auto) PT 11.5 INR 1.0 APTT Sodium 140 Potassium 4.1 Chloride 104 Carbon Dioxide 24 Anion Gap 16 BUN 14 Creatinine 0.9 Est GFR ( Amer) > 60 Est GFR (Non-Af Amer) > 60 Random Glucose 90 Hemoglobin A1c Calcium 8.5 L Magnesium 2.0 Total Bilirubin 0.4 AST 85 H D ALT 46 Alkaline Phosphatase 88 Total Creatine Kinase CK-MB (Mass) Troponin I NT-Pro-B Natriuret Pep Total Protein 7.0 Albumin 3.7 Globulin 3.3 Albumin/Globulin Ratio 1.1 Triglycerides 94 Cholesterol 217 H LDL Cholesterol Direct 149 H HDL Cholesterol 41 Free T4 0.83 TSH 3rd Generation 2.16 Urine Opiates Screen Urine Methadone Screen Ur Barbiturates Screen Ur Phencyclidine Scrn Ur Amphetamines Screen U Benzodiazepines Scrn U Oth Cocaine Metabols U Cannabinoids Screen EKG/Cardiology Studies: Cardiology / EKG Studies 11/22/17 11:27 ELECTROCARDIOGRAM Stat Comment: Mode Of Transportation: BED Reason For Exam: SOB 11/22/17 14:42 EKG [ELECTROCARDIOGRAM] Stat Comment: Mode Of Transportation: Reason For Exam: chest pain 11/23/17 07:00 ELECTROCARDIOGRAM DAILY Comment: Mode Of Transportation: WHEELCHAIR Reason For Exam: NSTEMI 11/24/17 07:00 ELECTROCARDIOGRAM DAILY Comment: Mode Of Transportation: WHEELCHAIR Reason For Exam: NSTEMI 11/25/17 07:00 ELECTROCARDIOGRAM DAILY Comment: Mode Of Transportation: WHEELCHAIR Reason For Exam: NSTEMI Critical Care Progress Note - Nutrition Nutrition: Nutrition Category Date Time Status Heart Healthy Diet [DIET] Diets 11/22/17 Dinner Active Assessment/Plan - Assessment and Plan (Free Text) Assessment: Patient is a 57 year old male with no significant past medical history presented to the ED with chest pain x 3-4 days. Now with NSTEMI. Will admit to ICU for closer monitoring. Neurology: -Patient is AAOx3 -Activity: OOB to chair Cardiology: -Patient denies previous cardiac issues -Patient with NSTEMI, currently chest pain improved -Troponin 4.040 -> 4.680 -> 6.0 -> 5.09 -BNP 1190, F/U echocardiogram -Was started on Lovenox 75mg Q12H (on hold for cardiac cath) -Continue Aspirin 325mg PO daily, Plavix 75mg PO daily -Continue Metoprolol 25mg PO Q6H, Nitroglycein 0.4mg SL prn, Crestor 40mg PO HS -Patient for cardiac cath this afternoon, NPO -NS at 100cc/hr started, Mucomyst 4ml PO q12H x 4 doses -Cardiology on consult, Dr Jamil, help appreciated Respiratory: -No acute events at this time -CXR 11/22: no active disease GI : -No acute events at this time Renal: -No acute events at this time GI/DVT ppx: -Pepcid 20mg PO BID -Lovenox 75mg Q12H (on hold) <Yang iVtale - Last Filed: 11/23/17 17:13> CCU Objective - Vital Signs / Intake & Output Vital Signs (Last 4 hours): Vital Signs Pulse Resp BP Pulse Ox 11/23/17 15:20 108/61 11/23/17 15:00 70 17 98 11/23/17 14:57 70 19 119/80 97 11/23/17 14:43 69 19 109/70 98 11/23/17 14:27 70 17 117/71 98 11/23/17 14:12 68 16 110/70 100 11/23/17 14:11 70 13 109/69 11/23/17 14:10 73 97 Intake and Output (Last 8hrs): Intake & Output 11/23/17 11/23/17 11/23/17 06:59 14:59 22:59 Intake Total 150 500 100 Output Total 400 Balance -250 500 100 Weight 149 lb 2 oz Intake: Intake, IV Amount 500 100 Left Antecubital 500 100 Oral 150 0 Output: Urine 400 Urine, Voided 400 Other: # Voids Urine, Voided 0 # Bowel Movements 0 0 - Patient Studies Lab Studies: Lab Studies 11/23/17 11/23/17 11/23/17 Range/Units 05:57 05:57 05:50 WBC (4.8-10.8) K/uL RBC (4.40-5.90) Mil/uL Hgb (12.0-18.0) g/dL Hct (35.0-51.0) % MCV (80.0-94.0) fL MCH (27.0-31.0) pg MCHC (33.0-37.0) g/dL RDW (11.5-14.5) % Plt Count (130-400) K/uL MPV (7.2-11.7) fL Neut % (Auto) (50.0-75.0) % Lymph % (Auto) (20.0-40.0) % [place] % (Auto) (0.0-10.0) % Eos % (Auto) (0.0-4.0) % Baso % (Auto) (0.0-2.0) % Neut # (Auto) (1.8-7.0) K/uL Lymph # (Auto) (1.0-4.3) K/uL [place] # (Auto) (0.0-0.8) K/uL Eos # (Auto) (0.0-0.7) K/uL Baso # (Auto) (0.0-0.2) K/uL PT 11.5 (9.7-12.2) SECONDS INR 1.0 Sodium 140 (132-148) mmol/L Potassium 4.1 (3.6-5.2) mmol/L Chloride 104 (98-107) mmol/L Carbon Dioxide 24 (22-30) mmol/L Anion Gap 16 (10-20) BUN 14 (9-20) mg/dL Creatinine 0.9 (0.8-1.5) mg/dL Est GFR ( Amer) > 60 Est GFR (Non-Af Amer) > 60 Random Glucose 90 (75-110) mg/dL Hemoglobin A1c (4.2-6.5) % Calcium 8.5 L (8.6-10.4) mg/dl Magnesium 2.0 (1.6-2.3) mg/dL Total Bilirubin 0.4 (0.2-1.3) mg/dL AST 85 H D (17-59) U/L ALT 46 (21-72) U/L Alkaline Phosphatase 88 (38-126) U/L Total Creatine Kinase (55-170) U/L CK-MB (Mass) (0.0-3.38) ng/mL Troponin I (0.00-0.120) ng/mL Total Protein 7.0 (6.3-8.3) g/dL Albumin 3.7 (3.5-5.0) g/dL Globulin 3.3 (2.2-3.9) gm/dL Albumin/Globulin Ratio 1.1 (1.0-2.1) Triglycerides 94 (0-149) mg/dL Cholesterol 217 H (0-199) mg/dL LDL Cholesterol Direct 149 H (0-129) mg/dL HDL Cholesterol 41 (30-70) mg/dL Free T4 0.83 (0.78-2.19) ng/dL TSH 3rd Generation 2.16 (0.46-4.68) mIU/L Urine Opiates Screen (NEGATIVE) Urine Methadone Screen (NEGATIVE) Ur Barbiturates Screen (NEGATIVE) Ur Phencyclidine Scrn (NEGATIVE) Ur Amphetamines Screen (NEGATIVE) U Benzodiazepines Scrn (NEGATIVE) U Oth Cocaine Metabols (NEGATIVE) U Cannabinoids Screen (NEGATIVE) 11/23/17 11/23/17 11/22/17 Range/Units 05:50 05:50 22:55 WBC 6.7 (4.8-10.8) K/uL RBC 4.66 (4.40-5.90) Mil/uL Hgb 14.0 (12.0-18.0) g/dL Hct 41.6 (35.0-51.0) % MCV 89.4 (80.0-94.0) fL MCH 30.1 (27.0-31.0) pg MCHC 33.7 (33.0-37.0) g/dL RDW 14.3 (11.5-14.5) % Plt Count 205 (130-400) K/uL MPV 8.4 (7.2-11.7) fL Neut % (Auto) 54.4 (50.0-75.0) % Lymph % (Auto) 27.1 (20.0-40.0) % [place] % (Auto) 12.5 H (0.0-10.0) % Eos % (Auto) 5.4 H (0.0-4.0) % Baso % (Auto) 0.6 (0.0-2.0) % Neut # (Auto) 3.7 (1.8-7.0) K/uL Lymph # (Auto) 1.8 (1.0-4.3) K/uL [place] # (Auto) 0.8 (0.0-0.8) K/uL Eos # (Auto) 0.4 (0.0-0.7) K/uL Baso # (Auto) 0.0 (0.0-0.2) K/uL PT (9.7-12.2) SECONDS INR Sodium (132-148) mmol/L Potassium (3.6-5.2) mmol/L Chloride (98-107) mmol/L Carbon Dioxide (22-30) mmol/L Anion Gap (10-20) BUN (9-20) mg/dL Creatinine (0.8-1.5) mg/dL Est GFR ( Amer) Est GFR (Non-Af Amer) Random Glucose (75-110) mg/dL Hemoglobin A1c 5.8 (4.2-6.5) % Calcium (8.6-10.4) mg/dl Magnesium (1.6-2.3) mg/dL Total Bilirubin (0.2-1.3) mg/dL AST (17-59) U/L ALT (21-72) U/L Alkaline Phosphatase (38-126) U/L Total Creatine Kinase 417 H (55-170) U/L CK-MB (Mass) 10.8 H (0.0-3.38) ng/mL Troponin I 5.0900 H* (0.00-0.120) ng/mL Total Protein (6.3-8.3) g/dL Albumin (3.5-5.0) g/dL Globulin (2.2-3.9) gm/dL Albumin/Globulin Ratio (1.0-2.1) Triglycerides (0-149) mg/dL Cholesterol (0-199) mg/dL LDL Cholesterol Direct (0-129) mg/dL HDL Cholesterol (30-70) mg/dL Free T4 (0.78-2.19) ng/dL TSH 3rd Generation (0.46-4.68) mIU/L Urine Opiates Screen (NEGATIVE) Urine Methadone Screen (NEGATIVE) Ur Barbiturates Screen (NEGATIVE) Ur Phencyclidine Scrn (NEGATIVE) Ur Amphetamines Screen (NEGATIVE) U Benzodiazepines Scrn (NEGATIVE) U Oth Cocaine Metabols (NEGATIVE) U Cannabinoids Screen (NEGATIVE) 11/22/17 11/22/17 Range/Units 20:06 18:22 WBC (4.8-10.8) K/uL RBC (4.40-5.90) Mil/uL Hgb (12.0-18.0) g/dL Hct (35.0-51.0) % MCV (80.0-94.0) fL MCH (27.0-31.0) pg MCHC (33.0-37.0) g/dL RDW (11.5-14.5) % Plt Count (130-400) K/uL MPV (7.2-11.7) fL Neut % (Auto) (50.0-75.0) % Lymph % (Auto) (20.0-40.0) % [place] % (Auto) (0.0-10.0) % Eos % (Auto) (0.0-4.0) % Baso % (Auto) (0.0-2.0) % Neut # (Auto) (1.8-7.0) K/uL Lymph # (Auto) (1.0-4.3) K/uL [place] # (Auto) (0.0-0.8) K/uL Eos # (Auto) (0.0-0.7) K/uL Baso # (Auto) (0.0-0.2) K/uL PT (9.7-12.2) SECONDS INR Sodium (132-148) mmol/L Potassium (3.6-5.2) mmol/L Chloride (98-107) mmol/L Carbon Dioxide (22-30) mmol/L Anion Gap (10-20) BUN (9-20) mg/dL Creatinine (0.8-1.5) mg/dL Est GFR ( Amer) Est GFR (Non-Af Amer) Random Glucose (75-110) mg/dL Hemoglobin A1c (4.2-6.5) % Calcium (8.6-10.4) mg/dl Magnesium (1.6-2.3) mg/dL Total Bilirubin (0.2-1.3) mg/dL AST (17-59) U/L ALT (21-72) U/L Alkaline Phosphatase (38-126) U/L Total Creatine Kinase 495 H (55-170) U/L CK-MB (Mass) 12.9 H (0.0-3.38) ng/mL Troponin I 6.0000 H* (0.00-0.120) ng/mL Total Protein (6.3-8.3) g/dL Albumin (3.5-5.0) g/dL Globulin (2.2-3.9) gm/dL Albumin/Globulin Ratio (1.0-2.1) Triglycerides (0-149) mg/dL Cholesterol (0-199) mg/dL LDL Cholesterol Direct (0-129) mg/dL HDL Cholesterol (30-70) mg/dL Free T4 (0.78-2.19) ng/dL TSH 3rd Generation (0.46-4.68) mIU/L Urine Opiates Screen Positive H (NEGATIVE) Urine Methadone Screen Negative (NEGATIVE) Ur Barbiturates Screen Negative (NEGATIVE) Ur Phencyclidine Scrn Negative (NEGATIVE) Ur Amphetamines Screen Negative (NEGATIVE) U Benzodiazepines Scrn Negative (NEGATIVE) U Oth Cocaine Metabols Negative (NEGATIVE) U Cannabinoids Screen Negative (NEGATIVE) Laboratory Results - last 24 hr 11/22/17 11/22/17 11/22/17 18:22 20:06 22:55 WBC RBC Hgb Hct MCV MCH MCHC RDW Plt Count MPV Neut % (Auto) Lymph % (Auto) [place] % (Auto) Eos % (Auto) Baso % (Auto) Neut # (Auto) Lymph # (Auto) [place] # (Auto) Eos # (Auto) Baso # (Auto) PT INR Sodium Potassium Chloride Carbon Dioxide Anion Gap BUN Creatinine Est GFR ( Amer) Est GFR (Non-Af Amer) Random Glucose Hemoglobin A1c Calcium Magnesium Total Bilirubin AST ALT Alkaline Phosphatase Total Creatine Kinase 495 H 417 H CK-MB (Mass) 12.9 H 10.8 H Troponin I 6.0000 H* 5.0900 H* Total Protein Albumin Globulin Albumin/Globulin Ratio Triglycerides Cholesterol LDL Cholesterol Direct HDL Cholesterol Free T4 TSH 3rd Generation Urine Opiates Screen Positive H Urine Methadone Screen Negative Ur Barbiturates Screen Negative Ur Phencyclidine Scrn Negative Ur Amphetamines Screen Negative U Benzodiazepines Scrn Negative U Oth Cocaine Metabols Negative U Cannabinoids Screen Negative 11/23/17 11/23/17 11/23/17 05:50 05:50 05:50 WBC 6.7 RBC 4.66 Hgb 14.0 Hct 41.6 MCV 89.4 MCH 30.1 MCHC 33.7 RDW 14.3 Plt Count 205 MPV 8.4 Neut % (Auto) 54.4 Lymph % (Auto) 27.1 [place] % (Auto) 12.5 H Eos % (Auto) 5.4 H Baso % (Auto) 0.6 Neut # (Auto) 3.7 Lymph # (Auto) 1.8 [place] # (Auto) 0.8 Eos # (Auto) 0.4 Baso # (Auto) 0.0 PT 11.5 INR 1.0 Sodium Potassium Chloride Carbon Dioxide Anion Gap BUN Creatinine Est GFR ( Amer) Est GFR (Non-Af Amer) Random Glucose Hemoglobin A1c 5.8 Calcium Magnesium Total Bilirubin AST ALT Alkaline Phosphatase Total Creatine Kinase CK-MB (Mass) Troponin I Total Protein Albumin Globulin Albumin/Globulin Ratio Triglycerides Cholesterol LDL Cholesterol Direct HDL Cholesterol Free T4 TSH 3rd Generation Urine Opiates Screen Urine Methadone Screen Ur Barbiturates Screen Ur Phencyclidine Scrn Ur Amphetamines Screen U Benzodiazepines Scrn U Oth Cocaine Metabols U Cannabinoids Screen 11/23/17 11/23/17 05:57 05:57 WBC RBC Hgb Hct MCV MCH MCHC RDW Plt Count MPV Neut % (Auto) Lymph % (Auto) [place] % (Auto) Eos % (Auto) Baso % (Auto) Neut # (Auto) Lymph # (Auto) [place] # (Auto) Eos # (Auto) Baso # (Auto) PT INR Sodium 140 Potassium 4.1 Chloride 104 Carbon Dioxide 24 Anion Gap 16 BUN 14 Creatinine 0.9 Est GFR ( Amer) > 60 Est GFR (Non-Af Amer) > 60 Random Glucose 90 Hemoglobin A1c Calcium 8.5 L Magnesium 2.0 Total Bilirubin 0.4 AST 85 H D ALT 46 Alkaline Phosphatase 88 Total Creatine Kinase CK-MB (Mass) Troponin I Total Protein 7.0 Albumin 3.7 Globulin 3.3 Albumin/Globulin Ratio 1.1 Triglycerides 94 Cholesterol 217 H LDL Cholesterol Direct 149 H HDL Cholesterol 41 Free T4 0.83 TSH 3rd Generation 2.16 Urine Opiates Screen Urine Methadone Screen Ur Barbiturates Screen Ur Phencyclidine Scrn Ur Amphetamines Screen U Benzodiazepines Scrn U Oth Cocaine Metabols U Cannabinoids Screen EKG/Cardiology Studies: Cardiology / EKG Studies 11/23/17 07:00 ELECTROCARDIOGRAM DAILY Comment: Mode Of Transportation: WHEELCHAIR Reason For Exam: NSTEMI Critical Care Progress Note - Nutrition Nutrition: Nutrition Category Date Time Status Heart Healthy Diet [DIET] Diets 11/22/17 Dinner Active Assessment/Plan - Assessment and Plan (Free Text) Plan: Above resident note reviewed and verified. Patient with NSTEMI -pending cath -possible transfer for CABG - Date & Time Date: 11/23/17 Time: 11:15
[2017-11-23] MEDS ORDERED: Iohexol 350mg/ml 100 ML ONE (12:17)
[2017-11-23] MEDS ORDERED: Iohexol 350mgl/ml 50 ML ONE (12:17)
[2017-11-23] MEDS ORDERED: Phenylephrine 10 mg/ml Inj ONE (12:20)
[2017-11-23 12:22] VITALS: TEMP 98.6
--- NOTE | 2017-11-23 12:45 | CP.PCM.CON ---
History of Present Illness - History of Present Illness History of Present Illness: Patient has been experiencing chest pain for the past 3-4 days. CP is left sided , non-radiating, described as 3/10 at peak, both pressure and sharp component. Patient states that when it first started, it woke him up from sleep. Pain was intermittent yesterday until he presented to er. pt also experiencing intermittent shortness of breath with exertion. Denies headaches, dizziness, palpitations, n/v/d/c, urinary symptoms. no prior hx of symptoms or cad. pt has multiple risk factors including HTN, DYSLIPIDEMIA and Tobacco use for many years. pt continues to smoke daily. upon arrival pts ekg showed st with 2mm st depressions in inf and lat leads. trop was 4, increased to 5 and is currently decreasing. he is currently cp free. Yesterday I started pt acutely on asa, plavix, lovenox, iv and po metoprolol, sl ntg and prn morphine. Review of Systems - Constitutional Constitutional: As Per HPI. absent: Anorexia, Chills, Daytime Sleepiness, Excessive Sweating, Fatigue, Fever, Frequent Falls, Headache, Increased Appetite , Lethargy, Malaise, Night Sweats, Snoring, Sleep Apnea, Weight Gain, Weight Loss, Weakness, Other - EENT Eyes: As Per HPI. absent: Blind Spots, Blurred Vision, Change in Vision, Decreased Night Vision, Diplopia, Discharge, Dry Eye, Exophthalmos, Floaters, Irritation, Itchy Eyes, Loss of Peripheral Vision, Pain, Photophobia, Requires Corrective Lenses, Sees Flashes, Spots in Vision, Tunnel Vision, Other Visual Disturbances, Loss of Vision, Other Ears: As Per HPI. absent: Decreased Hearing, Ear Discharge, Ear Pain, Tinnitus , Abnormal Hearing, Disequilibrium, Dizziness, Other Nose/Mouth/Throat: As Per HPI. absent: Epistaxis, Nasal Congestion, Nasal Discharge, Nasal Obstruction, Nasal Trauma, Nose Pain, Post Nasal Drip, Sinus Pain, Sinus Pressure, Bleeding Gums, Change in Voice, Dental Pain, Dry Mouth, Dysphagia, Halitosis, Hoarsness, Lip Swelling, Mouth Lesions, Mouth Pain, Odynophagia, Sore Throat, Throat Swelling, Tongue Swelling, Facial Pain, Neck Pain, Neck Mass, Other - Cardiovascular Cardiovascular: As Per HPI, Chest Pain at Rest, Chest Pain with Activity, Dyspnea on Exertion. absent: Acrocyanosis, Chest Pain, Claudication, Diaphoresis, Dyspnea, Edema, Irregular Heart Rhythm, Pain Radiating to Arm/Neck/ Jaw, Leg Edema, Leg Ulcers, Lightheadedness, Orthopnea, Palpitations, Paroxysmal Nocturnal Dyspnea, Pedal Edema, Radiating Pain, Rapid Heart Rate, Slow Heart Rate, Syncope, Other - Respiratory Respiratory: As Per HPI. absent: Cough, Dyspnea, Hemoptysis, Dyspnea on Exertion, Wheezing, Snoring, Stridor, Pain on Inspiration, Chest Congestion, Excessive Mucous Production, Change in Mucous Color, Pain with Coughing, Other - Gastrointestinal Gastrointestinal: As Per HPI. absent: Abdominal Pain, Belching, Bloating, Change in Bowel Habits, Change in Stool Character, Coffee Ground Emesis, Constipation, Cramping, Diarrhea, Dyspepsia, Dysphagia, Early Satiety, Excessive Flatus, Fecal Incontinence, Heartburn, Hematemesis, Hematochezia, Loose Stools, Melena, Nausea, Odynophagia, Temesmus, Vomiting, Other - Genitourinary Genitourinary: As Per HPI. absent: Change in Urinary Stream, Difficulty Urinating, Dysuria, Flank Pain, Hematuria, Pyuria, Nocturia, Urinary Incontinence, Urinary Frequency, Urinary Hesitance, Urinary Urgency, Voiding Freq/Small Amts, Freq UTI, Hx Renal/Bladder Calculi, Hx /Renal Surgery, Bladder Distension, Other - Musculoskeletal Musculoskeletal: As Per HPI. absent: Abnormal Gait, Arthralgias, Atrophy, Back Pain, Deformity, Joint Swelling, Limited Range of Motion, Loss of Height, Muscle Cramps, Muscle Weakness, Myalgias, Neck Pain, Numbness, Radiating Pain into Limb, Stiffness, Tingling, Other - Integumentary Integumentary: As Per HPI. absent: Acne, Alopecia, Bleeding Lesions, Change in Hair, Change in Nails, Change in Pigmentation, Changing Lesions, Dry Skin, Erythema, Furuncle, Hirsutism, Lesions, New Lesions, Non-Healing Lesions, Photosensitivity, Pruritus, Rash, Skin Pain, Skin Ulcer, Sores, Striae, Swelling , Unusual Bruising, Wounds, Jaundice, Other - Neurological Neurological: As Per HPI. absent: Abnormal Gait, Abnormal Hearing, Abnormal Movements, Abnormal Speech, Behavioral Changes, Burning Sensations, Confusion, Convulsions, Disequilibrium, Dizziness, Numbness, Focal Weakness, Frequent Falls , Headaches, Lack of Coordination, Loss of Vision, Memory Loss, Paresthesias, Radicular Pain, Restless Legs, Sensory Deficit, Syncope, Tingling, Tremor, Vertigo, Weakness, Other Visual Disturbances, Other - Psychiatric Psychiatric: As Per HPI. absent: Abnormal Sleep Pattern, Anhedonia, Anxiety, Auditory Hallucinations, Behavioral Changes, Change in Appetite, Change in Libido, Confusion, Depression, Difficulty Concentrating, Hallucinations, Homicidal Ideation, Hopelessness, Irritability, Memory Loss, Mood Swings, Panic Attacks, Paranoia, Suicidal Ideation, Visual Hallucinations, Tactile Hallucinations, Other - Endocrine Endocrine: As Per HPI. absent: Change in Body Appearance, Change in Libido, Cold Intolorance, Deepening of Voice, Excessive Sweating, Fatigue, Flushing, Heat Intolorance, Increase in Ring/Shoe/Hat Size, Palpitations, Polydipsia, Polyphagia, Polyuria, Other - Hematologic/Lymphatic Hematologic: As Per HPI. absent: Easy Bleeding, Easy Bruising, Lymphadenopathy , Other Past Patient History - Past Medical History & Family History Past Medical History?: No - Past Social History Smoking Status: Light Smoker < 10 Cigarettes Daily Chewing Tobacco Use: No Cigar Use: No Alcohol: Occasional Drugs: Denies Home Situation {Lives}: With Family Domestic Violence: Negative - CARDIAC Hx Hypercholesterolemia: Yes Hx Hypertension: Yes - MUSCULOSKELETAL/RHEUMATOLOGICAL Hx Falls: No - PSYCHIATRIC Hx Substance Use: No - SURGICAL HISTORY Hx Surgeries: No - ANESTHESIA Hx Anesthesia: No Meds Allergies/Adverse Reactions: Allergies Allergy/AdvReac Type Severity Reaction Status Date / Time No Known Allergies Allergy Verified 11/22/17 11:22 - Medications Medications: Current Medications Acetylcysteine (Acetylcysteine 20%) 4 ml PO Q12H [facility] Stop: 11/24/17 21:01 Last Admin: 11/23/17 09:09 Dose: Not Given Aspirin (Aspirin) 325 mg PO DAILY [facility] Last Admin: 11/23/17 09:09 Dose: Not Given Clopidogrel Bisulfate (Plavix) 75 mg PO DAILY [facility] Last Admin: 11/23/17 09:09 Dose: Not Given Enoxaparin Sodium (Lovenox) 75 mg SC Q12H [facility] Last Admin: 11/22/17 16:25 Dose: 75 mg Sodium Chloride (Sodium Chloride 0.9%) 1,000 mls @ 100 mls/hr IV .Q10H [facility] Last Admin: 11/23/17 09:00 Dose: 100 mls/hr Metoprolol Tartrate (Lopressor) 25 mg PO Q6 [facility] Last Admin: 11/23/17 12:04 Dose: Not Given Nitroglycerin (Nitrostat Sl Tab) 0.4 mg SL Q5M PRN PRN Reason: chest pain Rosuvastatin Calcium (Crestor) 40 mg PO HS [facility] Physical Exam - Constitutional Appears: Well - Head Exam Head Exam: ATRAUMATIC, NORMAL INSPECTION, NORMOCEPHALIC - Eye Exam Eye Exam: EOMI, Normal appearance, PERRL. absent: Conjunctival injection, Nystagmus, Periorbital swelling, Periorbital tenderness, Scleral icterus Pupil Exam: NORMAL ACCOMODATION, PERRL. absent: Fixed, Irregular, Miosis, Mydriatic, Unequal - ENT Exam ENT Exam: Mucous Membranes Moist, Normal Exam. absent: Mucous Membranes Dry, Normal External Ear Exam, Normal Oropharynx, TM's Normal Bilaterally - Neck Exam Neck exam: Positive for: Normal Inspection. Negative for: Full Rom, Lymphadenopathy, Meningismus, Tenderness, Thyromegaly - Respiratory Exam Respiratory Exam: Clear to Auscultation Bilateral, NORMAL BREATHING PATTERN. absent: Accessory Muscle Use, Chest Wall Tenderness, Decreased Breath Sounds, Prolonged Expiratory Phase, Rales, Rhonchi, Wheezes, Respiratory Distress, Stridor - Cardiovascular Exam Cardiovascular Exam: REGULAR RHYTHM, +S1, +S2, Systolic Murmur. absent: Bradycardia, Tachycardia, Clicks, Diastolic murmur, Gallop, Irregular Rhythm, JVD, RRR, Rubs, +S4 Additional comments: 3/6 apical rad to lsb - GI/Abdominal Exam GI & Abdominal Exam: Normal Bowel Sounds, Soft - Rectal Exam Rectal Exam: Deferred - Extremities Exam Extremities exam: Positive for: normal inspection. Negative for: calf tenderness, full ROM, joint swelling, normal capillary refill, pedal edema, tenderness, pedal pulses present - Back Exam Back exam: NORMAL INSPECTION. absent: CVA tenderness (L), CVA tenderness (R), FULL ROM, muscle spasm, paraspinal tenderness, rash noted, tenderness, vertebral tenderness - Neurological Exam Neurological exam: Alert, CN II-XII Intact, Normal Gait, Oriented x3, Reflexes Normal - Psychiatric Exam Psychiatric exam: Normal Affect, Normal Mood - Skin Skin Exam: Dry, Intact, Normal Color, Warm Results - Vital Signs Recent Vital Signs: Last Vital Signs Temp 98.6 F 11/23/17 12:00 Pulse 67 11/23/17 11:52 Resp 20 11/23/17 11:52 BP 99/62 L 11/23/17 11:52 Pulse Ox 94 L 11/23/17 11:52 - Labs Result Diagrams: 11/23/17 05:50 11/23/17 05:57 Labs: Laboratory Results - last 24 hr 11/22/17 11/22/17 11/22/17 11:44 15:26 15:26 WBC RBC Hgb Hct MCV MCH MCHC RDW Plt Count MPV Neut % (Auto) Lymph % (Auto) [place] % (Auto) Eos % (Auto) Baso % (Auto) Neut # (Auto) Lymph # (Auto) [place] # (Auto) Eos # (Auto) Baso # (Auto) PT 11.3 INR 1.0 APTT 25 Sodium 141 Potassium 4.3 Chloride 103 Carbon Dioxide 20 L Anion Gap 22 H BUN 13 Creatinine 0.9 Est GFR ( Amer) > 60 Est GFR (Non-Af Amer) > 60 Random Glucose 102 Hemoglobin A1c Calcium 9.3 Magnesium Total Bilirubin 0.6 AST 112 H ALT 47 Alkaline Phosphatase 97 Total Creatine Kinase 481 H CK-MB (Mass) 11.7 H Troponin I 4.0400 H* 4.6800 H* NT-Pro-B Natriuret Pep 1190 H Total Protein 7.8 Albumin 4.2 Globulin 3.6 Albumin/Globulin Ratio 1.2 Triglycerides Cholesterol LDL Cholesterol Direct HDL Cholesterol Free T4 TSH 3rd Generation Urine Opiates Screen Urine Methadone Screen Ur Barbiturates Screen Ur Phencyclidine Scrn Ur Amphetamines Screen U Benzodiazepines Scrn U Oth Cocaine Metabols U Cannabinoids Screen 11/22/17 11/22/17 11/22/17 18:22 20:06 22:55 WBC RBC Hgb Hct MCV MCH MCHC RDW Plt Count MPV Neut % (Auto) Lymph % (Auto) [place] % (Auto) Eos % (Auto) Baso % (Auto) Neut # (Auto) Lymph # (Auto) [place] # (Auto) Eos # (Auto) Baso # (Auto) PT INR APTT Sodium Potassium Chloride Carbon Dioxide Anion Gap BUN Creatinine Est GFR ( Amer) Est GFR (Non-Af Amer) Random Glucose Hemoglobin A1c Calcium Magnesium Total Bilirubin AST ALT Alkaline Phosphatase Total Creatine Kinase 495 H 417 H CK-MB (Mass) 12.9 H 10.8 H Troponin I 6.0000 H* 5.0900 H* NT-Pro-B Natriuret Pep Total Protein Albumin Globulin Albumin/Globulin Ratio Triglycerides Cholesterol LDL Cholesterol Direct HDL Cholesterol Free T4 TSH 3rd Generation Urine Opiates Screen Positive H Urine Methadone Screen Negative Ur Barbiturates Screen Negative Ur Phencyclidine Scrn Negative Ur Amphetamines Screen Negative U Benzodiazepines Scrn Negative U Oth Cocaine Metabols Negative U Cannabinoids Screen Negative 11/23/17 11/23/17 11/23/17 05:50 05:50 05:50 WBC 6.7 RBC 4.66 Hgb 14.0 Hct 41.6 MCV 89.4 MCH 30.1 MCHC 33.7 RDW 14.3 Plt Count 205 MPV 8.4 Neut % (Auto) 54.4 Lymph % (Auto) 27.1 [place] % (Auto) 12.5 H Eos % (Auto) 5.4 H Baso % (Auto) 0.6 Neut # (Auto) 3.7 Lymph # (Auto) 1.8 [place] # (Auto) 0.8 Eos # (Auto) 0.4 Baso # (Auto) 0.0 PT 11.5 INR 1.0 APTT Sodium Potassium Chloride Carbon Dioxide Anion Gap BUN Creatinine Est GFR ( Amer) Est GFR (Non-Af Amer) Random Glucose Hemoglobin A1c 5.8 Calcium Magnesium Total Bilirubin AST ALT Alkaline Phosphatase Total Creatine Kinase CK-MB (Mass) Troponin I NT-Pro-B Natriuret Pep Total Protein Albumin Globulin Albumin/Globulin Ratio Triglycerides Cholesterol LDL Cholesterol Direct HDL Cholesterol Free T4 TSH 3rd Generation Urine Opiates Screen Urine Methadone Screen Ur Barbiturates Screen Ur Phencyclidine Scrn Ur Amphetamines Screen U Benzodiazepines Scrn U Oth Cocaine Metabols U Cannabinoids Screen 11/23/17 11/23/17 05:57 05:57 WBC RBC Hgb Hct MCV MCH MCHC RDW Plt Count MPV Neut % (Auto) Lymph % (Auto) [place] % (Auto) Eos % (Auto) Baso % (Auto) Neut # (Auto) Lymph # (Auto) [place] # (Auto) Eos # (Auto) Baso # (Auto) PT INR APTT Sodium 140 Potassium 4.1 Chloride 104 Carbon Dioxide 24 Anion Gap 16 BUN 14 Creatinine 0.9 Est GFR ( Amer) > 60 Est GFR (Non-Af Amer) > 60 Random Glucose 90 Hemoglobin A1c Calcium 8.5 L Magnesium 2.0 Total Bilirubin 0.4 AST 85 H D ALT 46 Alkaline Phosphatase 88 Total Creatine Kinase CK-MB (Mass) Troponin I NT-Pro-B Natriuret Pep Total Protein 7.0 Albumin 3.7 Globulin 3.3 Albumin/Globulin Ratio 1.1 Triglycerides 94 Cholesterol 217 H LDL Cholesterol Direct 149 H HDL Cholesterol 41 Free T4 0.83 TSH 3rd Generation 2.16 Urine Opiates Screen Urine Methadone Screen Ur Barbiturates Screen Ur Phencyclidine Scrn Ur Amphetamines Screen U Benzodiazepines Scrn U Oth Cocaine Metabols U Cannabinoids Screen - EKG Data EKG Interpreted by: Myself EKG shows normal: Sinus rhythm Rate: Normal Assessment & Plan (1) HTN (hypertension) Status: Acute (2) Dyslipidemia Status: Acute (3) NSTEMI (non-ST elevated myocardial infarction) Status: Acute - Assessment and Plan (Free Text) Plan: PT FOR CARDIAC CATH TODAY. CONT CURRENT MEDS. BP AND HR STABLE, EKG IMPROVED, NO CURRENT CP. ECHO DONE REVEALS NML EF WITH MOD MR. ADDENDUM: CATH PERFORMED. SEVERE MULTIVESSEL CAD WITH COMPUTER ANALYST SUPERVISOR OF RCA AND LAD. I SPOKE WITH CT SURGEON AT [facility] [place] AND PT WILL BE TRANSFERED THERE FOR BYPASS. MAY NEED A MV RING HOWEVER WILL ASSESS INTRA-OP. STOP PLAVIX. 120 MIN TOTAL CARE TIME AND DOCUMENTATION
[2017-11-23 14:49] VITALS: O2SAT 98
[2017-11-23 15:03] VITALS: PULSE 70; RESP 17
[2017-11-23 15:21] VITALS: BP 108/61
[2017-11-23] MEDS: Enoxaparin 80 mg Syringe SC SCH (15:21)
--- NOTE | 2017-11-23 15:45 | CATH ---
APPROVED REPORT Procedure(s) performed: Left Heart Catheterization Left Ventriculogram MOSQUEDA Angiogram [facility] [employer] DEPLOYEMENT HISTORY The patient is a 57 year-old MALE with a history of : tobacco history(35) : The patient is a current smoker, dyslipidemia. INDICATION The indication(s) include : murmur, non-STEMI (>6 hrs to = 12 hrs), chest pain, abnormal ECG, dyspnea. CASE TECHNIQUE The patient was brought electively to the Cardiac Catheterization Laboratory in a fasting state and was prepped and draped in a sterile manner. The right femoral groin was infiltrated with 2% Lidocaine subcutaneous anesthesia. A sheath was inserted into the right femoral artery without difficulty. Coronary angiography was performed using coronary diagnostic catheters. The left coronary system was accessed and visualized with a Diagnostic catheter. The right coronary system was accessed and visualized with a Diagnostic catheter. The left ventricle was accessed and visualized with a Diagnostic catheter. The left internal mammary artery was accessed and visualized with a Diagnostic catheter. Left ventricular/Aortic Valve gradient assessed on pullback. Left ventriculogram was performed in RIVERA projection. Pre-demployment femoral angiogram was performed . Closure device was deployed with a 6 Fr Angioseal without any complications. The patient tolerated the procedure well and there were no complications associated with the procedure. Vessel Analysis The patient's coronary anatomy is right dominant. The left main coronary artery is a large size vessel without stenosis. The left anterior descending artery is a large size vessel with stenosis. There is a 100% stenosis in the mid segment. THE LEFT MAIN FORMS THE LAD, LCX AND RAMUS 1 AND RAMUS 2. LAD IS CTA JUST DISTAL TO THE FIRST SEPTAL PHYSICAL FITNESS TRAINER. THE SEPTAL PHYSICAL FITNESS TRAINER COLLATERALIZES THE RPDA AND THE DISTAL LAD. THE DISTAL LAD IS ALSO COLLATERALIZED BY RAMUS 1 AND 2, AND OM1. THERE IS AN 80% MID RAMUS 2 LESION. LCX HAS 90% MID VESSEL LESION. THE OM1 HAS A 90% PROX LESION. RCA TOTAL OCCLUSION WITH COLLATERAL FLOW TO RPDA AND RPLA VIA OM1, SEPTAL PERFORATORS AND RAMUS VESSELS. MOSQUEDA IS PATENT THROUGHOUT ITS COURSE. Left Ventricle The left ventricle is NORMAL in size with NORMAL contractility. The left ventricular ejection fraction is estimated to be 55%. The left ventricular end diastolic pressure is 20 mmHg. There was no gradient across the aortic valve upon pullback. MOD MR NOTED ON LV GRAM. Conclusion MULTIVESSEL CAD WITH GIZZARD SKIN REMOVER'S AND COLLATERALS NML EF MOD MR Recommendations Smoking Cessation TRANSFER FOR CABG.
--- NOTE | 2017-11-24 10:25 | CARD ---
APPROVED REPORT EKG Measurement Heart [id number] <Conclusion> Sinus rhythm with 1st degree AV block Inferior infarct, age undetermined Abnormal ECG
--- NOTE | 2017-11-24 15:11 | CP.PCM.DIS ---
Provider - Provider Date of Admission: 11/22/17 14:09 Attending physician: Aron Cartwright DO Consults: Dr Artemio Jamil ~ Cardiology Dr Neves ~ ICU Time Spent in preparation of Discharge (in minutes): 29 Diagnosis - Discharge Diagnosis (1) NSTEMI (non-ST elevated myocardial infarction) Status: Acute Hospital Course - Lab Results Lab Results: Micro Results 11/22/17 Unknown Naris MRSA Culture (Admit) - Final MRSA NOT DETECTED Most Recent Lab Values WBC 6.7 K/uL (4.8-10.8) 11/23/17 05:50 RBC 4.66 Mil/uL (4.40-5.90) 11/23/17 05:50 Hgb 14.0 g/dL (12.0-18.0) 11/23/17 05:50 Hct 41.6 % (35.0-51.0) 11/23/17 05:50 MCV 89.4 fL (80.0-94.0) 11/23/17 05:50 MCH 30.1 pg (27.0-31.0) 11/23/17 05:50 MCHC 33.7 g/dL (33.0-37.0) 11/23/17 05:50 RDW 14.3 % (11.5-14.5) 11/23/17 05:50 Plt Count 205 K/uL (130-400) 11/23/17 05:50 MPV 8.4 fL (7.2-11.7) 11/23/17 05:50 Neut % (Auto) 54.4 % (50.0-75.0) 11/23/17 05:50 Lymph % (Auto) 27.1 % (20.0-40.0) 11/23/17 05:50 [place] % (Auto) 12.5 % (0.0-10.0) H 11/23/17 05:50 Eos % (Auto) 5.4 % (0.0-4.0) H 11/23/17 05:50 Baso % (Auto) 0.6 % (0.0-2.0) 11/23/17 05:50 Neut # (Auto) 3.7 K/uL (1.8-7.0) 11/23/17 05:50 Lymph # (Auto) 1.8 K/uL (1.0-4.3) 11/23/17 05:50 [place] # (Auto) 0.8 K/uL (0.0-0.8) 11/23/17 05:50 Eos # (Auto) 0.4 K/uL (0.0-0.7) 11/23/17 05:50 Baso # (Auto) 0.0 K/uL (0.0-0.2) 11/23/17 05:50 PT 11.5 SECONDS (9.7-12.2) 11/23/17 05:50 INR 1.0 11/23/17 05:50 APTT 25 SECONDS (21-34) 11/22/17 15:26 Sodium 140 mmol/L (132-148) 11/23/17 05:57 Potassium 4.1 mmol/L (3.6-5.2) 11/23/17 05:57 Chloride 104 mmol/L (98-107) 11/23/17 05:57 Carbon Dioxide 24 mmol/L (22-30) 11/23/17 05:57 Anion Gap 16 (10-20) 11/23/17 05:57 BUN 14 mg/dL (9-20) 11/23/17 05:57 Creatinine 0.9 mg/dL (0.8-1.5) 11/23/17 05:57 Est GFR ( Amer) > 60 11/23/17 05:57 Est GFR (Non-Af Amer) > 60 11/23/17 05:57 Random Glucose 90 mg/dL (75-110) 11/23/17 05:57 Hemoglobin A1c 5.8 % (4.2-6.5) 11/23/17 05:50 Calcium 8.5 mg/dl (8.6-10.4) L 11/23/17 05:57 Magnesium 2.0 mg/dL (1.6-2.3) 11/23/17 05:57 Total Bilirubin 0.4 mg/dL (0.2-1.3) 11/23/17 05:57 AST 85 U/L (17-59) H D 11/23/17 05:57 ALT 46 U/L (21-72) 11/23/17 05:57 Alkaline Phosphatase 88 U/L (38-126) 11/23/17 05:57 Total Creatine Kinase 417 U/L (55-170) H 11/22/17 22:55 CK-MB (Mass) 10.8 ng/mL (0.0-3.38) H 11/22/17 22:55 Troponin I 5.0900 ng/mL (0.00-0.120) H* 11/22/17 22:55 NT-Pro-B Natriuret Pep 1190 pg/mL (0-900) H 11/22/17 11:44 Total Protein 7.0 g/dL (6.3-8.3) 11/23/17 05:57 Albumin 3.7 g/dL (3.5-5.0) 11/23/17 05:57 Globulin 3.3 gm/dL (2.2-3.9) 11/23/17 05:57 Albumin/Globulin Ratio 1.1 (1.0-2.1) 11/23/17 05:57 Triglycerides 94 mg/dL (0-149) 11/23/17 05:57 Cholesterol 217 mg/dL (0-199) H 11/23/17 05:57 LDL Cholesterol Direct 149 mg/dL (0-129) H 11/23/17 05:57 HDL Cholesterol 41 mg/dL (30-70) 11/23/17 05:57 Free T4 0.83 ng/dL (0.78-2.19) 11/23/17 05:57 TSH 3rd Generation 2.16 mIU/L (0.46-4.68) 11/23/17 05:57 Urine Opiates Screen Positive (NEGATIVE) H 11/22/17 20:06 Urine Methadone Screen Negative (NEGATIVE) 11/22/17 20:06 Ur Barbiturates Screen Negative (NEGATIVE) 11/22/17 20:06 Ur Phencyclidine Scrn Negative (NEGATIVE) 11/22/17 20:06 Ur Amphetamines Screen Negative (NEGATIVE) 11/22/17 20:06 U Benzodiazepines Scrn Negative (NEGATIVE) 11/22/17 20:06 U Oth Cocaine Metabols Negative (NEGATIVE) 11/22/17 20:06 U Cannabinoids Screen Negative (NEGATIVE) 11/22/17 20:06 - Hospital Course Hospital Course: Patient was transferred to [facility] for CABG surgery following cardiac catherization results Mr Finch is a 57 year old male with no significant PMHx. He has risk factors of heavy smoking, and HTN He was having 3 days of chest pain when he came to see his primary physician Dr. Hernandez. His physician was concerned due to the patient's status and sent him to the emergency room In the ER he was found to have a positive troponin of 4.0 as well as EKG changes in I, avL, V5 and V6. The lateral leads showed ST segment depression and ischemia. He received aspirin in the ER and then sent to telemetry. Because of the ongoing chest pain, we administer morphine as well as nitroglcerin and notified cardiology broadcast director operations. Because of the ongoing chest pain he was very shortly thereafter moved to the ICU for further monitoring. He recived lovenox 75 SC BID as well as loading does of Plavix 300 and Plavix 75. He was also given lopressor to help control the HR as well as blood pressure. He was also started on a statin as well. He underwent cardiac cauterization and showed severe multilevel CAD, RCA, and LAD. Because of this multivessel disease, he was required further intervention at [facility] and was transfered in the afternoon of 11/23/2017 Aron Cartwright Discharge Exam - Head Exam Head Exam: ATRAUMATIC, NORMAL INSPECTION, NORMOCEPHALIC - Eye Exam Eye Exam: EOMI, Normal appearance Pupil Exam: NORMAL ACCOMODATION - Respiratory Exam Respiratory Exam: Clear to PA & Lateral, NORMAL BREATHING PATTERN, UNREMARKABLE - Cardiovascular Exam Cardiovascular Exam: REGULAR RHYTHM. absent: Diastolic murmur, Systolic Murmur - GI/Abdominal Exam GI & Abdominal Exam: Normal Bowel Sounds, Unremarkable. absent: Distended, Firm , Guarding - Neurological Exam Neurological exam: Alert, CN II-XII Intact, Oriented x3 - Psychiatric Exam Psychiatric exam: Normal Affect, Normal Mood - Skin Skin Exam: Normal Color, Warm Discharge Plan - Follow Up Plan Condition: FAIR Disposition: Trans to Other Acute Care Hosp Instructions: High Blood Pressure (DC), Heart Attack (DC)
--- NOTE | 2017-11-24 15:28 | VASCLAB ---
PROCEDURE: Lower Extremity Venous Duplex Exam. HISTORY: Chest pain, Shortness of breath, r/o DVT PRIORS: None. TECHNIQUE: Bilateral common femoral, femoral, popliteal and posterior tibial, peroneal and great saphenous veins were evaluated. Flow was assessed with color Doppler, compressibility, assessment of phasic flow and augmentation response. Report prepared by ELIZA Rueda FINDINGS: RIGHT: 1. Common Femoral Vein: 1.1. Dressing in right groin, s/p cardiac cath. 2. Femoral Vein: 2.1. Compressibility - Fully compressible: Thrombus - None : Flow - Phasic: Augmentation -Normal: Reflux - None. 3. Popliteal Vein: 3.1. Compressibility - Fully compressible: Thrombus - None : Flow - Phasic: Augmentation -Normal: Reflux - None. 4. Posterior Tibial Vein: 4.1. Compressibility - Fully compressible: Thrombus - None: Flow - Phasic: Augmentation -Normal: Reflux - None. 5. Peroneal Vein: 5.1. Compressibility - Fully compressible: Thrombus - None: Flow - Phasic: Augmentation -Normal: Reflux - None. 6. Great Saphenous Vein: 6.1. Compressibility - Fully compressible: Thrombus - None: Flow - Phasic: Augmentation - Normal: Reflux - None. LEFT: 1. Common Femoral Vein: 1.1. Compressibility - Fully compressible: Thrombus - None: Flow - Phasic: Augmentation -Normal: Reflux - None. 2. Femoral Vein: 2.1. Compressibility - Fully compressible: Thrombus - None: Flow - Phasic: Augmentation -Normal: Reflux - None. 3. Popliteal Vein: 3.1. Compressibility - Fully compressible: Thrombus - None : Flow - Phasic: Augmentation -Normal: Reflux - None. 4. Posterior Tibial Vein: 4.1. Compressibility - Fully compressible: Thrombus - None: Flow - Phasic: Augmentation -Normal: Reflux - None. 5. Peroneal Vein: 5.1. Compressibility - Fully compressible: Thrombus - None: Flow - Phasic: Augmentation -Normal: Reflux - None. 6. Great Saphenous Vein: 6.1. Compressibility - Fully compressible: Thrombus - None: Flow - Phasic: Augmentation - Normal: Reflux - None. OTHER FINDINGS: None significant. IMPRESSION: Right: No evidence of deep or superficial vein thrombosis of the right lower extremity, for the imaged veins. Normal valve function noted of the right side. Left: No evidence of deep or superficial vein thrombosis of the left lower extremity. Normal valve function noted of the left side.
--- NOTE | 2017-11-24 22:24 | CARD ---
APPROVED REPORT EKG Measurement Heart [id number] <Conclusion> Sinus rhythm with 1st degree AV block Possible Left atrial enlargement Inferior infarct, age undetermined Possible Anterior infarct, age undetermined Abnormal ECG
--- NOTE | 2017-11-24 22:36 | CARD ---
APPROVED REPORT EKG Measurement Heart [id number] <Conclusion> Sinus rhythm with 1st degree AV block with occasional premature ventricular complexes Possible Left atrial enlargement Inferior infarct, age undetermined Cannot rule out Anterior infarct, age undetermined Abnormal ECG
== END 2017-11-23 16:13 | disposition short-term general hospital (02) | DRG 122 ==
LOC: C.ER 11:03 → C.6T 14:09 → C.9I 16:43
PROVIDERS: ADMIT Hospitalist; ATTEND Hospitalist
PROC: 4A023N7 Measurement of Cardiac Sampling and Pressure, Left Heart, Percutaneous Approach (ICD-10-PCS; principal; 2017-11-23)
PROC: B2111ZZ Fluoroscopy of Multiple Coronary Arteries using Low Osmolar Contrast (ICD-10-PCS; 2017-11-23)
PROC: B2151ZZ Fluoroscopy of Left Heart using Low Osmolar Contrast (ICD-10-PCS; 2017-11-23)
DX: I21.4 Non-ST elevation (NSTEMI) myocardial infarction (principal); E78.5 Hyperlipidemia, unspecified; F17.210 Nicotine dependence, cigarettes, uncomplicated; I10 Essential (primary) hypertension; I25.10 Atherosclerotic heart disease of native coronary artery without angina pectoris